=== PATIENT | female | born 1980 | race African-American/Black ===

== ENCOUNTER 2016-12-19 20:38 | Emergency (ER) | payer OTHER ==
--- NOTE | 2016-12-19 20:52 | PDOC ---
Rapid Medical Evaluation Time Seen by Provider: 12/19/16 20:48 Medical Evaluation: Allergies Allergy/AdvReac Type Severity Reaction Status Date / Time No Known Allergies Allergy Verified 05/31/16 10:50 12/19/16 20:50 36 yo F (right hand dominant)c/o right distal/medial forearm abscess since 4d ago. She initially noticed a pimple to her forearm x4d ago which prompted her to squeeze it. 3 days ago she noticed some redness with swelling without drainage.
[2016-12-19 20:54] VITALS: BP 146/77; PULSE 98; TEMP 97.7; BMI 24.2
--- NOTE | 2016-12-19 22:45 | PDOC ---
History of Present Illness - General History Source: Patient Exam Limitations: No Limitations - History of Present Illness Initial Comments: 12/19/16 23:36 The patient is a 36 year old female, with a significant past medical history of bipolar, anxiety and depression, who presents to the emergency department with right forearm abscess. She reports that the abscess was a pimple, which she attempted to squeeze it, resulting in a small amount of pus coming out. But the abscess has exacerbated. She reports minimal pain from the area. The patient denies chest pain, shortness of breath, headache and dizziness. Denies fever, chills, nausea, vomit, diarrhea and constipation. Allergies: None Past surgical history: None reported Social history: Cigarette use (5 daily). No alcohol or drug use reported PMD - Dr. Nhan Mcclelland <Dinesh Michaels - Last Filed: 12/19/16 23:35> <Stanislaw Akhtar - Last Filed: 12/19/16 23:48> - General Chief Complaint: Wound Infection Stated Complaint: CYST RIGHT ARM Time Seen by Provider: 12/19/16 20:48 Past History <Dinesh Michaels - Last Filed: 12/19/16 23:35> - Past Medical History Anemia: No Asthma: No Cancer: No Cardiac Disorders: No COPD: No Diabetes: No GI Disorders: No Disorders: No HTN: No Hypercholesterolemia: No Kidney Stones: No Psychiatric Problems: Yes (BIPOLAR, ANXIETY, DEPRESSION) Suicide Attempt (Hx): No Seizures: No Thyroid Disease: No - Reproductive History (#): 5 Para: 1 PID: No Therapeutic (s) & number: Yes (2) Spontaneous : 1 - Immunization History Td Vaccination: Yes Immunization Up to Date: Yes - Psycho/Social/Smoking Cessation Hx Anxiety: Yes Suicidal Ideation: No Smoking Status: Yes Smoking History: Current every day smoker Years of Tobacco Use: 15 Have you smoked in the past 12 months: No Number of Cigarettes Smoked Daily: 5 Cigars Per Day: 0 Information on smoking cessation initiated: Yes 'Breaking Loose' booklet given: 12/19/16 Hx Alcohol Use: No Drug/Substance Use Hx: No Substance Use Type: None Hx Substance Use Treatment: No <Stanislaw Akhtar - Last Filed: 12/19/16 23:48> - Past Medical History Allergies/Adverse Reactions: Allergies Allergy/AdvReac Type Severity Reaction Status Date / Time No Known Allergies Allergy Verified 12/19/16 20:50 Home Medications: Ambulatory Orders Oxycodone HCl/Acetaminophen [Percocet 5-325 mg Tablet] 1 tab PO Q6H #14 tablet MDD 3 12/19/16 Sulfamethoxazole/Trimethoprim [Bactrim Ds -] 1 tab PO BID #20 tablet 12/19/16 Review of Systems - Review of Systems Able to Perform ROS?: Yes Comments:: 12/19/16 23:36 CONSTITUTIONAL: No fever, no chills, no fatigue EYES: No visual changes ENT: No ear pain, no sore throat CARDIOVASCULAR: No chest pain, no palpitations RESPIRATORY: No cough, no SOB GI: No abdominal pain, no nausea, no vomiting, no constipation, no diarrhea GENITOURINARY: No dysuria, no frequency, no hematuria MUSKULOSKELETAL: No backpain, no joint pain, no myalgias SKIN: +Right forearm abscess. NEURO: No headache <Dinesh Michaels - Last Filed: 12/19/16 23:35> *Physical Exam - Vital Signs Last Vital Signs Temp Pulse Resp BP Pulse Ox 97.7 F 98 H 18 146/77 98 12/19/16 20:51 12/19/16 20:51 12/19/16 20:51 12/19/16 20:51 12/19/16 20:51 <Dinesh Michaels - Last Filed: 12/19/16 23:35> - Vital Signs Last Vital Signs Temp Pulse Resp BP Pulse Ox 97.7 F 98 H 18 146/77 98 12/19/16 20:51 12/19/16 20:51 12/19/16 20:51 12/19/16 20:51 12/19/16 20:51 - Physical Exam Comments: EXTR: Right forearm: + Approximately 5 cm x 4 cm area of erythema with induration and a centrally located 1.5 cm area of fluctuance beneath a hemorrhagic eschar. <Stanislaw Akhtar - Last Filed: 12/19/16 23:48> Procedures - Incision and Drainage I&D Site: Right: Arm (right forearm) Betadine cleansed: Yes Anesthesia: 1% Lidocaine w/ Epi Volume(ml): 2 Blade Size: 11 Attempts: 1 Plain Packing: Yes (2 inches) Complications: none Dressing: Yes Progress: 12/19/16 23:33 pt gwendolyn procedure well <Stanislaw Akhtar - Last Filed: 12/19/16 23:48> ED Treatment Course - Medications Given in the ED: ED Medications Discontinued Medications Generic Name Dose Route Start Last Admin Trade Name Randal PRN Reason Stop Dose Admin Trimethoprim/Sulfamethoxazole 1 each 12/19/16 22:53 12/19/16 23:07 Bactrim Ds - PO 12/19/16 22:54 1 each ONCE ONE Administration <Dinesh Michaels - Last Filed: 12/19/16 23:35> Medical Decision Making - Medical Decision Making 12/19/16 23:47 Patient is a well-appearing 36-year-old female who presents with signs and symptoms of an acute cutaneous abscess to the right forearm. Abscess was incised and drained with drainage of large amount of purulent material. Abscess cavity was packed and gauze dressing applied. Wound cultures been obtained. Patient received Bactrim in the ED and will be discharged with by mouth Bactrim with wound check in 48 hours. <Stanislaw Akhtar - Last Filed: 12/19/16 23:48> *DC/Admit/Observation/Transfer - Attestations Scribe Attestion: 12/19/16 23:36 Documentation prepared by Dinesh Michaels, acting as director biomedical engineering for Stanislaw Akhtar MD <Dinesh Michaels - Last Filed: 12/19/16 23:35> <Stanislaw Akhtar - Last Filed: 12/19/16 23:48> Diagnosis at time of Disposition: Cellulitis and abscess of upper arm and forearm - Discharge Dispostion Disposition: HOME Condition at time of disposition: Stable - Prescriptions Prescriptions: Sulfamethoxazole/Trimethoprim [Bactrim Ds -] 1 tab PO BID #20 tablet Oxycodone HCl/Acetaminophen [Percocet 5-325 mg Tablet] 1 tab PO Q6H #14 tablet MDD 3 - Referrals Referrals: Nhan Mcclelland MD [Primary Care Provider] - ED, fourty eight hours [Other] - Patient Instructions Printed Discharge Instructions: DI for Wound Infection, DI for Skin Abscess
[2016-12-19] MEDS ORDERED: SULFAMETHOXAZOLE/TRIMETHOPRIM 800MG/160MG D.S. TABLET PO ONE (22:53)
[2016-12-19] MEDS ORDERED: SULFAMETHOXAZOLE/TRIMETHOPRIM 800MG/160MG D.S. TABLET ONE (22:57)
[2016-12-19] MEDS ORDERED: OXYCODONE/APAP 5/325MG COMBO TABLET ONE (23:45)
[2016-12-19] MEDS ORDERED: OXYCODONE/APAP 5/325MG COMBO TABLET PO ONE (23:49)
== END 2016-12-19 23:52 | disposition home or self-care (01) ==
LOC: JERFT 20:38 → JER 20:38
PROC: 0J9G0ZZ Drainage of Right Lower Arm Subcutaneous Tissue and Fascia, Open Approach (ICD-10-PCS; principal; 2016-12-19)
DX: L02.413 Cutaneous abscess of right upper limb (principal); F31.9 Bipolar disorder, unspecified; F17.210 Nicotine dependence, cigarettes, uncomplicated
CPT/HCPCS: 87070; 87186; 87205; 99281-25

== ENCOUNTER 2018-02-22 14:50 | Emergency (ER) | payer OTHER ==
[2018-02-22 15:01] VITALS: BMI 30.2
[2018-02-22] MEDS ORDERED: ACETAMINOPHEN 500 MG TABLET (FP) PO ONE (15:52)
[2018-02-22] MEDS ORDERED: ACETAMINOPHEN 325 MG TABLET (FP) ONE (16:09)
[2018-02-22 16:22] LABS: URINE APPEARANCE CLEAR; URINE BILIRUBIN NEGATIVE (<2.0 mg/dL); URINE COLOR YELLOW; URINE GLUCOSE (UA) NEGATIVE (NEGATIVE); URINE KETONE 2+ (NEGATIVE); URINE LEUK ESTERASE NEGATIVE (NEGATIVE); URINE NITRITE NEGATIVE (NEGATIVE); URINE PROTEIN NEGATIVE (NEGATIVE)
--- NOTE | 2018-02-22 16:39 | PDOC ---
History of Present Illness - General Chief Complaint: Back Pain Stated Complaint: BACK PAIN (20+ WKS ) Time Seen by Provider: 02/22/18 15:22 History Source: Patient Exam Limitations: No Limitations - History of Present Illness Initial Comments: 02/22/18 16:00 37-year-old female currently 16-17 weeks presents to the ED with complaints of worsening low back pain since the onset of her . Patient states she had some lower back pain with her last but not to this extent. Patient states has not taken anything for the pain since she is afraid to take anything for this . Patient states had had an ultrasound a few weeks ago done by Dr. Reed which was normal. Patient denies dysuria, fever, nausea, vaginal bleeding or vaginal discharge. Patient does state intermittent lower abdominal pain which she describes a cramping for the past month. Occurred: reports: other (approximately 2 month) Severity: reports: mild Pain Location: reports: back Modifying Factors: improves with: None Associated Symptoms (Fall): denies symptoms Past History - Past Medical History Allergies/Adverse Reactions: Allergies Allergy/AdvReac Type Severity Reaction Status Date / Time No Known Allergies Allergy Verified 02/22/18 15:01 Home Medications: Ambulatory Orders NK [No Known Home Medication] 04/19/17 Anemia: No Asthma: No Cancer: No Cardiac Disorders: No COPD: No Diabetes: No GI Disorders: No Disorders: No HTN: No Hypercholesterolemia: No Kidney Stones: No Psychiatric Problems: Yes (BIPOLAR, ANXIETY, DEPRESSION) Seizures: No Thyroid Disease: No - Reproductive History (#): 5 Para: 1 PID: No Therapeutic (s) & number: Yes (2) Spontaneous : 1 - Immunization History Td Vaccination: Yes Immunization Up to Date: Yes - Suicide/Smoking/Psychosocial Hx Smoking Status: Yes Smoking History: Current every day smoker Years of Tobacco Use: 15 Have you smoked in the past 12 months: Yes Number of Cigarettes Smoked Daily: 5 Cigars Per Day: 0 Information on smoking cessation initiated: No 'Breaking Loose' booklet given: 12/19/16 Hx Alcohol Use: No Drug/Substance Use Hx: No Substance Use Type: None Hx Substance Use Treatment: No Patient Lives Alone: No Lives with/in: spouse/SO Trauma Specific PMHX - Complaint Specific PMHX Arthritis: No Review of Systems - Review of Systems Able to Perform ROS?: No Constitutional: No: Symptoms Reported HEENTM: No: Symptoms Reported Respiratory: No: Symptoms reported Cardiac (ROS): No: Symptoms Reported ABD/GI: Yes: Abdominal cramping : No: Symptoms Reported Musculoskeletal: Yes: Back Pain. No: Joint Pain, Muscle Pain, Muscle Weakness, Neck Pain Integumentary: No: Symptoms Reported Neurological: No: Symptoms reported *Physical Exam - Vital Signs Last Vital Signs Temp Pulse Resp BP Pulse Ox 98 F 93 H 18 117/69 99 02/22/18 14:57 02/22/18 14:57 02/22/18 14:57 02/22/18 14:57 02/22/18 14:57 - Physical Exam General Appearance: Yes: Nourished, Appropriately Dressed. No: Apparent Distress HEENT: negative: Pale Conjunctivae Neck: positive: Normal Thyroid Respiratory/Chest: positive: Lungs Clear, Normal Breath Sounds. negative: Respiratory Distress, Accessory Muscle Use Cardiovascular: positive: Regular Rhythm, Regular Rate. negative: Murmur Gastrointestinal/Abdominal: positive: Soft. negative: Tenderness Musculoskeletal: positive: Other (bilateral paraspinous tenderness at l3-s1). negative: Decreased Range of Motion, Vertebral Tenderness (no midline tenderness ) Integumentary: positive: Normal Color, Warm, Moist Neurologic: positive: Normal Mood/Affect, Motor Strength 5/5 (ambulatory) ED Treatment Course - ADDITIONAL ORDERS Additional order review: Laboratory Results 02/22/18 16:00 Urine Color Yellow Urine Appearance Clear Urine pH 6.0 Ur Specific [place] 1.020 Urine Protein Negative Urine Glucose (UA) Negative Urine Ketones 2+ H Urine Blood Negative Urine Nitrite Negative Urine Bilirubin Negative Urine Urobilinogen 2.0 H Ur Leukocyte Esterase Negative - RADIOLOGY Radiology Studies Ordered: Category Date Time Status LIMITED US [US] Stat Ultrasound 02/22/18 15:53 Ordered - Medications Given in the ED: ED Medications Discontinued Medications Generic Name Dose Route Start Last Admin Trade Name Freq PRN Reason Stop Dose Admin Acetaminophen 975 mg 02/22/18 15:52 02/22/18 16:10 Tylenol - PO 02/22/18 15:53 975 mg ONCE ONE Administration Medical Decision Making - Medical Decision Making 02/22/18 16:46 Pt with worsening low back pain over the past month. Patient is currently 16-17 weeks . Patient had no midline tenderness CVA tenderness or abdominal tenderness. Patient ordered for urine and urine culture, Tylenol and ultrasound. 02/22/18 17:51 Laboratory Tests 02/22/18 16:00 Urine Ketones 2+ H Urine Nitrite Negative Urine Urobilinogen 2.0 H Ur Leukocyte Esterase Negative Ultrasound shows a single live intrauterine gestation measuring 15 weeks 3 days with heart rate of 1 54 bpm. Patient states feeling better after receiving Tylenol. Patient will be discharged home with recommendations to take Tylenol for back discomfort and follow-up with Dr. Reed 02/22/18 18:02 *DC/Admit/Observation/Transfer Diagnosis at time of Disposition: Back pain affecting - Discharge Dispostion Disposition: HOME Condition at time of disposition: Improved - Referrals Referrals: Cali Reed MD [Staff Physician] - - Patient Instructions Printed Discharge Instructions: DI for Low Back Pain Additional Instructions: Please take Tylenol for discomfort and apply warm moist heating pad to the affected area to alleviate discomfort. Please follow up with Dr. Reed as scheduled and return to the ED if you develop lower abdominal pain, vaginal bleeding, vaginal discharge, or inability to tolerate by mouth. - Post Discharge Activity
[2018-02-22 18:24] VITALS: BP 115/79; PULSE 81; TEMP 98.2
== END 2018-02-22 18:27 | disposition home or self-care (01) ==
LOC: JER 14:50
DX: O99.89 Other specified diseases and conditions complicating pregnancy, childbirth and the puerperium (principal); M54.5 Low back pain; Z3A.15 15 weeks gestation of pregnancy
CPT/HCPCS: 76815-TC; 81003; 99283-25

== ENCOUNTER 2018-03-13 09:10 | Observation (INO) | payer OTHER ==
--- NOTE | 2018-03-13 09:43 | PDOC ---
History of Present Illness - General Chief Complaint: Pain, Acute Stated Complaint: 27 WKS/ABD PAIN Time Seen by Provider: 03/13/18 09:25 History Source: Patient Exam Limitations: No Limitations - History of Present Illness Initial Comments: 03/13/18 09:38 5 para 2, 19 week female with LMP 10/24/2017 , came to ER with C/O pain to back., right side and abdomen. states has had multiple issues and pains with this , has been to ER number of times for same. He has never had any significant positive results with these ER visits. Was seen by Dr. Reed, Her BOX REPAIRER Doctor , Yesterday Who Did Not Prescribe Any Medications for This Pain. She states they performed a doppler, to check for heart tone which was normal. tThe pain has worsened the past 3 days. Thinks may be related to the size of fetus. Patient denies fever, nausea vomiting, denies any pain or burning with urine, states baby mildly constipated but has gone "small amounts" every day. Denies bleeding or vaginal drainage. 03/13/18 09:43 03/13/18 10:43 Timing/Duration: unsure Severity: moderate Associated Symptoms: reports: denies symptoms, malaise. denies: chest pain, cough, diaphoresis, fever/chills, headaches, loss of appetite, nausea/vomiting Past History - Travel Traveled outside of the country in the last 30 days: No Close contact w/someone who was outside of country & ill: No - Past Medical History Allergies/Adverse Reactions: Allergies Allergy/AdvReac Type Severity Reaction Status Date / Time No Known Allergies Allergy Verified 02/22/18 15:01 Home Medications: Ambulatory Orders NK [No Known Home Medication] 04/19/17 Anemia: No Asthma: No Cancer: No Cardiac Disorders: No COPD: No Diabetes: No GI Disorders: No Disorders: No HTN: No Hypercholesterolemia: No Kidney Stones: No Psychiatric Problems: Yes (BIPOLAR, ANXIETY, DEPRESSION) Seizures: No Thyroid Disease: No - Reproductive History (#): 5 Para: 1 PID: No Therapeutic (s) & number: Yes (2) Spontaneous : 1 - Immunization History Td Vaccination: Yes Immunization Up to Date: Yes - Suicide/Smoking/Psychosocial Hx Smoking Status: Yes Smoking History: Current every day smoker Years of Tobacco Use: 15 Have you smoked in the past 12 months: Yes Number of Cigarettes Smoked Daily: 5 Cigars Per Day: 0 Information on smoking cessation initiated: No 'Breaking Loose' booklet given: 12/19/16 Hx Alcohol Use: No Drug/Substance Use Hx: No Substance Use Type: None Hx Substance Use Treatment: No Review of Systems - Review of Systems Able to Perform ROS?: Yes Is the patient limited Romansh proficient: Yes Constitutional: Yes: Symptoms Reported, See HPI, Malaise. No: Chills, Fever HEENTM: Yes: See HPI. No: Symptoms Reported Respiratory: Yes: See HPI. No: Symptoms reported, Cough ABD/GI: Yes: Symptoms Reported, See HPI, Abdominal cramping (vs MS pain). No: Abdominal Distended, Nausea, Rectal Bleeding, Vomiting, Tarry Stools : Yes: See HPI. No: Symptoms Reported, Burning, Dysuria, Discharge Integumentary: Yes: See HPI. No: Symptoms Reported Neurological: Yes: See HPI. No: Symptoms reported, Headache, Numbness All Other Systems: Reviewed and Negative *Physical Exam - Vital Signs Last Vital Signs Temp Pulse Resp BP Pulse Ox 98.7 F 82 20 113/73 99 03/13/18 09:20 03/13/18 09:20 03/13/18 09:20 03/13/18 09:20 03/13/18 09:20 - Physical Exam General Appearance: Yes: Nourished, Appropriately Dressed, Apparent Distress, Mild Distress HEENT: positive: OBINNA, Normal ENT Inspection, Normal Voice, TMs Normal, Pharynx Normal Neck: positive: Supple. negative: Tender, Lymphadenopathy (R), Lymphadenopathy (L) Respiratory/Chest: positive: Lungs Clear, Normal Breath Sounds Cardiovascular: positive: Regular Rate Gastrointestinal/Abdominal: positive: Normal Bowel Sounds, Soft (19 week preg abd. No tendernss reproduced in soft tissue ). negative: Guarding, Rebound, Hepatomegaly, Spleenomegaly Musculoskeletal: positive: Normal Inspection. negative: CVA Tenderness Extremity: positive: Normal Capillary Refill, Normal Inspection, Normal Range of Motion Integumentary: positive: Normal Color, Dry, Warm, Pale Neurologic: positive: school photographs detailer II-XII NML intact, Fully Oriented, Alert, Normal Mood/ Affect, Normal Response, Motor Strength 02/22 ED Treatment Course - LABORATORY CBC & Chemistry Diagram: 03/13/18 09:55 03/13/18 09:55 Medical Decision Making - Medical Decision Making 03/13/18 09:52 Back and side pain, probable musculoskeletal issues. Will obtain basic labs and send urinalysis as appears mildly cloudy. And obtain ultrasound to rule out any intrauterine uterine issue or issue. Family in room with patient, patient refuses Tylenol for pain relief 03/13/18 09:53 03/13/18 12:17 Discussed case with LESTER Rodgers from Dr. Reed office who stated patient had relatively uncomplicated thus far. Reviewed labs and she recommended antibiotic treatment with Macrobid for possible UTI and culture pending, and notified will obtain ultrasound to rule out kidney stones as patient has white count of 18,000, and blood in urine without any obvious signs of UTI. Patient understands plan and continues to refuse need for Tylenol 03/13/18 15:26 return from ultrasound which shows right mild hydronephrosis. No stones were identified however due to patient's back pain, blood in urinalysis +2. wiht RBC..and high WBC 03/13/18 15:29 03/13/18 17:07 Patient will be admitted to [facility] observation. Dr. Merritt has been consult ; will note that monitoring is not necessary however will accept patient to L&D floor for beds placement for observation. Dr. Shawn Martínez has been notified for urology consult and will see patient . 03/13/18 18:55 Patient medicated with 2 tablets of Tylenol for pain, IV, flushed and flowing well, patient was taken to third floor for bed placement and admission, Family at bedside. 03/13/18 18:56 *DC/Admit/Observation/Transfer Diagnosis at time of Disposition: Second trimester Hydronephrosis Qualifiers: Hydronephrosis type: unspecified Qualified Code(s): N13.30 - Unspecified hydronephrosis Leukocytosis Qualifiers: Leukocytosis type: unspecified Qualified Code(s): D72.829 - Elevated white blood cell count, unspecified - Discharge Dispostion Condition at time of disposition: Stable Decision to Admit order: Yes - Referrals - Patient Instructions - Post Discharge Activity
[2018-03-13 10:10] LABS: URINE APPEARANCE CLEAR; URINE BILIRUBIN NEGATIVE (<2.0 mg/dL); URINE COLOR LTYELLOW; URINE GLUCOSE (UA) NEGATIVE (NEGATIVE); URINE KETONE NEGATIVE (NEGATIVE); URINE LEUK ESTERASE NEGATIVE (NEGATIVE); URINE NITRITE NEGATIVE (NEGATIVE); URINE PROTEIN NEGATIVE (NEGATIVE); URINE UROBILINOGEN NEGATIVE mg/dL (0.2-1.0)
[2018-03-13 10:14] LABS: BASO % 0.3 % (0-2.0); EOS % 0.3 % (0-4.5); HEMATOCRIT 33.3 % (32.4-45.2); HEMOGLOBIN 11.5 GM/dL (10.7-15.3); LYMPH % 8.6 % (8-40); MCH 29.8 pg (25.7-33.7); MCHC 34.4 g/dl (32.0-36.0); MEAN CELL VOLUME 86.4 fl (80-96); MONO % 7.5 % (3.8-10.2); NEUT % 83.3 % (42.8-82.8); PLATELET COUNT 232 K/MM3 (134-434); RBC 3.85 M/mm3 (3.60-5.2); RDW 12.7 % (11.6-15.6); WHITE BLOOD COUNT 17.9 K/mm3 (4.0-10.0)
[2018-03-13 10:22] LABS: EPI CELLS RARE /HPF (FEW); URINE MUCUS RARE
[2018-03-13 10:32] LABS: ANION GAP 9 (8-16); BLOOD UREA NITROGEN 10 mg/dL (7-18); CALCIUM 8.3 mg/dL (8.5-10.1); CHLORIDE 106 mmol/L (98-107); CO2 23 mmol/L (21-32); CREATININE 0.8 mg/dL (0.55-1.02); GLUCOSE,RANDOM 91 mg/dL (74-106); POTASSIUM 3.9 mmol/L (3.5-5.1); SODIUM 138 mmol/L (136-145)
[2018-03-13] MEDS ORDERED: ONDANSETRON 4 MG/2 ML VIAL ONE (13:16)
[2018-03-13] MEDS ORDERED: ONDANSETRON 4 MG/2 ML VIAL IVPUSH ONE (13:16)
[2018-03-13] MEDS ORDERED: SODIUM CHLORIDE 1,000 ML IV SCH (13:30)
[2018-03-13] MEDS ORDERED: CEFTRIAXONE 1,000 MG in DEXTROSE 5%-WATER - 50 ML IV ONE (15:26)
[2018-03-13] MEDS ORDERED: CEFTRIAXONE 1 GM/50 ML BAG ONE (16:28)
--- NOTE | 2018-03-13 16:40 | PDOC ---
*Physical Exam - Vital Signs Last Vital Signs Temp Pulse Resp BP Pulse Ox 98.1 F 73 16 95/51 99 03/13/18 14:00 03/13/18 14:00 03/13/18 14:00 03/13/18 14:00 03/13/18 14:00 ED Treatment Course - LABORATORY CBC & Chemistry Diagram: 03/13/18 09:55 03/13/18 09:55 - ADDITIONAL ORDERS Additional order review: Laboratory Results 03/13/18 03/13/18 03/13/18 09:55 09:55 09:55 Sodium Cancelled 138 Potassium Cancelled 3.9 Chloride Cancelled 106 Carbon Dioxide Cancelled 23 Anion Gap Cancelled 9 BUN Cancelled 10 Creatinine Cancelled 0.8 Random Glucose Cancelled 91 Calcium Cancelled 8.3 L Beta HCG, Quant 96183.9 Urine Color Ltyellow Urine Appearance Clear Urine pH 6.0 Ur Specific [place] 1.020 Urine Protein Negative Urine Glucose (UA) Negative Urine Ketones Negative Urine Blood 2+ H Urine Nitrite Negative Urine Bilirubin Negative Urine Urobilinogen Negative Ur Leukocyte Esterase Negative Urine WBC (Auto) 3 Urine RBC (Auto) 119 Ur Epithelial Cells Rare Urine Mucus Rare 03/13/18 09:55 RBC 3.85 MCV 86.4 MCHC 34.4 RDW 12.7 MPV 9.0 Neutrophils % 83.3 H D Lymphocytes % 8.6 D Monocytes % 7.5 Eosinophils % 0.3 Basophils % 0.3 - Medications Given in the ED: ED Medications Discontinued Medications Generic Name Dose Route Start Last Admin Trade Name Freq PRN Reason Stop Dose Admin Ondansetron HCl 4 mg 03/13/18 13:16 03/13/18 13:21 Zofran Injection IVPUSH 03/13/18 13:17 4 mg ONCE ONE Administration Medical Decision Making - Medical Decision Making 03/13/18 16:37 37y/o F 19.5 wks gestation p/w acute back/flank pain and dysuria. agree with exam as noted. workup notable for wbc 18 with neutrophil shift, ua with 119 rbc, sono with R sided hydronephrosis. Given sxs and findings, most concerning for obstructing, infected stone. urine cx sent abx started discussed with [facility], does not need monitoring at this time, they will consult. will admit to hospitalist for pain control, iv abx, and further evaluation with for evaluation of need for emergent decompression or further evaluation in . *DC/Admit/Observation/Transfer Diagnosis at time of Disposition: Second trimester Hydronephrosis Qualifiers: Hydronephrosis type: unspecified Qualified Code(s): N13.30 - Unspecified hydronephrosis Leukocytosis Qualifiers: Leukocytosis type: unspecified Qualified Code(s): D72.829 - Elevated white blood cell count, unspecified - Referrals - Patient Instructions - Post Discharge Activity
[2018-03-13] MEDS: SODIUM CHLORIDE 1,000 ML IV SCH (16:59)
--- NOTE | 2018-03-13 17:13 | PN ---
Teaching Attending Note Name of Resident: Marci Lazcano ATTENDING PHYSICIAN STATEMENT I saw and evaluated the patient. I reviewed the resident's note and discussed the case with the resident. I agree with the resident's findings and plan as documented with exceptions below. SUBJECTIVE: 37 yf 19 weeks 2 days , no other PMHx comes with 3 days of left back pain radiating down to her groin, progressively worse, intermittent, with episode of diaphoresis. Was seen by her Ob yesterday, had FHR check and was found to be well, felt her pain was from fetus positioning in and sent home. Came to ED today with persistent symptoms, reports feeling of incomplete evaluation, but no urinary frequency, urgency, dysuria, prior h/o UTI or stones. No similar history during prior pregnancies. Currently feels better. OBJECTIVE: Vital Signs Period Temp Pulse Resp BP Sys/[place] Pulse Ox Last 24 Hr 98.1 F-98.7 F 73-82 16-20 95-121/51-73 99-100 Intake & Output 03/10/18 03/11/18 03/12/18 03/13/18 23:59 23:59 23:59 23:59 Weight 150 lb GENERAL: Awake, alert, and fully oriented, in no acute distress. HEAD: Normal with no signs of trauma. EYES: Pupils equal, round and reactive to light, extraocular movements intact, sclera anicteric, conjunctiva clear. No lid lag. EARS, NOSE, THROAT: Ears normal, nares patent, oropharynx clear without exudates. Moist mucous membranes. NECK: soft, supple, no JVD LUNGS: Breath sounds equal, clear to auscultation bilaterally. No wheezes, and no crackles. No accessory muscle use. HEART: S1S2 regular ABDOMEN: Soft, distended, tenderness in LMQ/upper LLQ, positive Left CVA tenderness, no suprapubic tenderness, discomfort in RMQ report more from fetus movement to the left MUSCULOSKELETAL: Normal range of motion at all joints. No bony deformities or tenderness. No CVA tenderness. UPPER EXTREMITIES: 2+ pulses, warm, well-perfused. No cyanosis. No clubbing. No peripheral edema. LOWER EXTREMITIES: 2+ pulses, warm, well-perfused. No calf tenderness. No peripheral edema. NEUROLOGICAL: Cranial nerves II-XII intact. Normal speech. PSYCHIATRIC: Cooperative. Good eye contact. Appropriate mood and affect. SKIN: Warm, dry, normal turgor, no rashes or lesions noted, normal capillary refill. Home Medication List Medication Instructions Recorded Confirmed Type NK [No Known Home Medication] 04/19/17 03/13/18 History Active Medications Generic Name Dose Route Start Last Admin Trade Name Randal PRN Reason Stop Dose Admin Sodium Chloride 1,000 mls @ 150 mls/hr 03/13/18 13:30 03/13/18 13:21 Normal Saline - IV 150 mls/hr ASDIR MARGO Administration Sodium Chloride 1,000 mls @ 150 mls/hr 03/13/18 15:30 03/13/18 16:59 Normal Saline - IV 150 mls/hr ASDIR MARGO Administration Laboratory Results - last 24 hr 03/13/18 03/13/18 03/13/18 09:55 09:55 09:55 WBC 17.9 H D RBC 3.85 Hgb 11.5 D Hct 33.3 MCV 86.4 MCH 29.8 MCHC 34.4 RDW 12.7 Plt Count 232 MPV 9.0 Neutrophils % 83.3 H D Lymphocytes % 8.6 D Monocytes % 7.5 Eosinophils % 0.3 Basophils % 0.3 Nucleated RBC % 0 Sodium 138 Potassium 3.9 Chloride 106 Carbon Dioxide 23 Anion Gap 9 BUN 10 Creatinine 0.8 Random Glucose 91 Calcium 8.3 L Beta HCG, Quant 09300.9 Urine Color Ltyellow Urine Appearance Clear Urine pH 6.0 Ur Specific [place] 1.020 Urine Protein Negative Urine Glucose (UA) Negative Urine Ketones Negative Urine Blood 2+ H Urine Nitrite Negative Urine Bilirubin Negative Urine Urobilinogen Negative Ur Leukocyte Esterase Negative Urine WBC (Auto) 3 Urine RBC (Auto) 119 Ur Epithelial Cells Rare Urine Mucus Rare 03/13/18 09:55 WBC RBC Hgb Hct MCV MCH MCHC RDW Plt Count MPV Neutrophils % Lymphocytes % Monocytes % Eosinophils % Basophils % Nucleated RBC % Sodium Cancelled Potassium Cancelled Chloride Cancelled Carbon Dioxide Cancelled Anion Gap Cancelled BUN Cancelled Creatinine Cancelled Random Glucose Cancelled Calcium Cancelled Beta HCG, Quant Urine Color Urine Appearance Urine pH Ur Specific [place] Urine Protein Urine Glucose (UA) Urine Ketones Urine Blood Urine Nitrite Urine Bilirubin Urine Urobilinogen Ur Leukocyte Esterase Urine WBC (Auto) Urine RBC (Auto) Ur Epithelial Cells Urine Mucus Renal US noted - mild right hydronephrosis Obstetrics US results noted ASSESSMENT AND PLAN: 37 yof 19 weeks 2 days with back pain, found with hematuria, leucocytosis and mild left hydronephrosis. -Mild left hydronephrosis -hematuria, ?, vs nephrolithiasis (less likely) vs infectious process -leucocytosis, ?from vs stress response, low suspicion for ongoing concerning UTI vs pyelonephritis -19 weeks 2 days Plan: s/p Ceftriaxone in ED. Cefazolin. ID consult. Follow up urine cultures. No evidence of stone on renal US though not optimal imaging. Mild hydronephrosis common in as discussed with Dr. Norman. aggressive IV hydration. Monitor WBC and renal function. Discussed with Dr. Norman, leucocytosis and mild left hydronephrosis could be explained from but positive hematuria, back symptoms and urinary symptoms. Bladder scan x 1, monitor closely. Pain control tylenol prn. Discussed with patient, avoid narcotics for now, patient agreable. Admit to obs to Field Service Engineer floor for FHR monitoring as indicated. dispo home in 24-48 hours if w/u unrevealing and patient improved. Plan discussed with patient in detail, all questions answered.
[2018-03-13] MEDS ORDERED: ACETAMINOPHEN 325 MG TABLET (FP) PO ONE (18:23)
[2018-03-13] MEDS ORDERED: ACETAMINOPHEN 325 MG TABLET (FP) ONE (18:36)
--- NOTE | 2018-03-13 18:37 | HP ---
CHIEF COMPLAINT: back pain PCP:none HISTORY OF PRESENT ILLNESS: The patient is a 37 year old female G 5 P3, 19 week , no PMH, that presented to the hospital complaining of back pain on left side radiating to left side of her abdomen that started 3 days ago. She went to her OBGYN Dr Reed, had Doppler and was told that her fetus is healthy and she should not be concerned. No medications were prescribed to her. Today her pain got worse, it is constant, sharp since 3 AM. She states that she always has abdominal pain during this . She states that every time she goes to the bathroom to urinate, she has feeling of not emptying her bladder completely. She denies dysuria, increased frequency, urgency. Patient denies fever, nausea vomiting, denies diarrhea, constipation, loss of appetite. Denies bleeding or vaginal drainage. ER course was notable for: (1)US (2)WBC (3) PAST MEDICAL HISTORY: no PMH PAST SURGICAL HISTORY: 2 c sections Social History: Smoking:currwent smoker, 5-6 cigarettes a day Alcohol:denies Drugs:denies Family History: She was adopted. Children healthy. Allergies No Known Allergies Allergy (Verified 02/22/18 15:01) HOME MEDICATIONS: Home Medications Medication Instructions Recorded NK [No Known Home Medication] 04/19/17 REVIEW OF SYSTEMS CONSTITUTIONAL: Absent: fever, chills, diaphoresis, generalized weakness, malaise, loss of appetite, weight change HEENT: Absent: rhinorrhea, nasal congestion, throat pain, throat swelling, difficulty swallowing, CARDIOVASCULAR: Absent: chest pain, syncope, palpitations, irregular heart rate, lightheadedness , peripheral edema RESPIRATORY: Absent: cough, shortness of breath, dyspnea with exertion, orthopnea, wheezing, GASTROINTESTINAL: abdominal pain, Absent: abdominal distension, nausea, vomiting, diarrhea, constipation, GENITOURINARY: flank pain, Absent: dysuria, frequency, urgency, hesitancy, hematuria, genital pain SKIN: Absent: rash, itching, pallor ENDOCRINE: Absent: unexplained weight gain, unexplained weight loss, NEUROLOGIC: Absent: headache, focal weakness or paresthesias, dizziness PSYCHIATRIC: Absent: anxiety, depression, PHYSICAL EXAMINATION Vital Signs - 24 hr 03/13/18 03/13/18 03/13/18 09:20 14:00 16:59 Temperature 98.7 F 98.1 F Pulse Rate 82 Pulse Rate [ 73 75 Right] Respiratory 20 16 16 Rate Blood Pressure 113/73 Blood Pressure 95/51 121/51 [Right Arm] O2 Sat by Pulse 99 99 100 Oximetry (%) GENERAL: Awake, alert, and fully oriented, in no acute distress. HEAD: Normal with no signs of trauma. EYES: Pupils equal, round and reactive to light, extraocular movements intact, sclera anicteric, conjunctiva clear. Swelling on upper eyelids. EARS, NOSE, THROAT: oropharynx clear without exudates. Moist mucous membranes. NECK: Normal range of motion, supple without lymphadenopathy, JVD, or masses. LUNGS: Breath sounds equal, clear to auscultation bilaterally. No wheezes, and no crackles. HEART: Regular rate and rhythm, normal S1 and S2 without murmur, rub or gallop. ABDOMEN: gravid, mild tenderness on left side, normoactive bowel sounds, no guarding, no rebound, no masses. MUSCULOSKELETAL: Normal range of motion at all joints. No bony deformities or tenderness. +CVA on left side. UPPER EXTREMITIES: No peripheral edema. LOWER EXTREMITIES: 2+ pulses, no peripheral edema. NEUROLOGICAL: no facial asymmetry, gait not observed, motor 5/5. PSYCHIATRIC: Cooperative. Good eye contact. Appropriate mood and affect. SKIN: Warm, dry, normal turgor, no rashes. Laboratory Results - last 24 hr 03/13/18 03/13/18 03/13/18 09:55 09:55 09:55 WBC 17.9 H D RBC 3.85 Hgb 11.5 D Hct 33.3 MCV 86.4 MCH 29.8 MCHC 34.4 RDW 12.7 Plt Count 232 MPV 9.0 Neutrophils % 83.3 H D Lymphocytes % 8.6 D Monocytes % 7.5 Eosinophils % 0.3 Basophils % 0.3 Nucleated RBC % 0 Sodium 138 Potassium 3.9 Chloride 106 Carbon Dioxide 23 Anion Gap 9 BUN 10 Creatinine 0.8 Random Glucose 91 Calcium 8.3 L Beta HCG, Quant 83014.9 Urine Color Ltyellow Urine Appearance Clear Urine pH 6.0 Ur Specific [place] 1.020 Urine Protein Negative Urine Glucose (UA) Negative Urine Ketones Negative Urine Blood 2+ H Urine Nitrite Negative Urine Bilirubin Negative Urine Urobilinogen Negative Ur Leukocyte Esterase Negative Urine WBC (Auto) 3 Urine RBC (Auto) 119 Ur Epithelial Cells Rare Urine Mucus Rare 03/13/18 09:55 WBC RBC Hgb Hct MCV MCH MCHC RDW Plt Count MPV Neutrophils % Lymphocytes % Monocytes % Eosinophils % Basophils % Nucleated RBC % Sodium Cancelled Potassium Cancelled Chloride Cancelled Carbon Dioxide Cancelled Anion Gap Cancelled BUN Cancelled Creatinine Cancelled Random Glucose Cancelled Calcium Cancelled Beta HCG, Quant Urine Color Urine Appearance Urine pH Ur Specific [place] Urine Protein Urine Glucose (UA) Urine Ketones Urine Blood Urine Nitrite Urine Bilirubin Urine Urobilinogen Ur Leukocyte Esterase Urine WBC (Auto) Urine RBC (Auto) Ur Epithelial Cells Urine Mucus ASSESSMENT/PLAN: The patient is a 37 year old female G 5 P3, 19 week , no PMH, that presented to the hospital complaining of back pain on left side radiating to left side of her abdomen that started 3 days ago. She is admitted for hydronephrosis on left side. Left hydronephrosis: -The patient presented with strong pain for 3 days , elevated WBC to 17.9, 2+ blood in urine, 19 weeks . She was found to have mild hydronephrosis on left side. No NANCY. low suspicion for pyelonephritis. -Ceftriaxone was given in ED, will continue Cefazolin, -consulted ID, will f/u recommendations -will f/u OBGYN recommendations, she will stay on 3rd floor -NS at 150 cc/hr -Yulenol Po 650 mg q6h -bladder scan ordered -urine culture pending : -will f/u OBGYN recommendations -cont hydration and monitoring DVT PPX: ambulating -scds bilaterally F/E/N: NS/no changes/Regular Disposition: med surg obs Visit type - Emergency Visit Emergency Visit: Yes ED Registration Date: 03/13/18 Care time: The patient presented to the Emergency Department on the above date and was hospitalized for further evaluation of their emergent condition. - New Patient This patient is new to me today: Yes Date on this admission: 03/13/18 - Critical Care Critical Care patient: No Hospitalist Screening - Colonoscopy Questionnaire Colonoscopy Questionnaire: Colonoscopy Questionnaire - Patient: 50 - 75 years old and never had a screening colonoscopy: No History of colon or rectal polyps, or CA: No History of IBD, Crohn's disease or UC: No History of abdominal radiation therapy as a child: No - Relative: 1 with colon or rectal CA, or polyps at age 60 or younger: No Colon or rectal CA diagnosed at age 45 or younger: No Multiple relatives with colon or rectal CA: No - Outcome: Screening Result: Negative Screen
--- NOTE | 2018-03-13 19:25 | CON.GU ---
Consult - History of Present Illness History of Present Illness: 37 yo female, 19wks , admitted with several days of left flank pain, feeling of incomplete emptying, sweats. Renal sono with mild left hydro. No prior h/o nephrolithiasis - Past Medical History ...LMP: 10/24/17 ...: Yes - Alcohol/Substance Use Hx Alcohol Use: No - Smoking History Smoking history: Current every day smoker Have you smoked in the past 12 months: Yes Aproximately how many cigarettes per day: 5 Home Medications - Allergies Allergies/Adverse Reactions: Allergies Allergy/AdvReac Type Severity Reaction Status Date / Time No Known Allergies Allergy Verified 02/22/18 15:01 - Home Medications Home Medications: Ambulatory Orders NK [No Known Home Medication] 04/19/17 Physical Exam- Vital Signs: Vital Signs Temperature 98.1 F 03/13/18 14:00 Pulse Rate 75 03/13/18 16:59 Respiratory Rate 16 03/13/18 16:59 Blood Pressure 121/51 03/13/18 16:59 O2 Sat by Pulse Oximetry (%) 100 03/13/18 16:59 Renal/: Yes: Other (no hematuria) Labs: CBC, BMP 03/13/18 09:55 03/13/18 09:55 Imaging - Results Ultrasound: Report Reviewed Problem List - Problems (1) Hydronephrosis Assessment/Plan: uti vs possible small left ureteral stone. Agree with IVF hydration, antibiotics and analgesics Code(s): N13.30 - UNSPECIFIED HYDRONEPHROSIS Qualifiers: Hydronephrosis type: unspecified Qualified Code(s): N13.30 - Unspecified hydronephrosis
[2018-03-13] MEDS: ACETAMINOPHEN 325 MG TABLET (FP) PO PRN (21:36)
[2018-03-13 21:44] VITALS: BMI 30.2
[2018-03-14] MEDS: SODIUM CHLORIDE 1,000 ML IV SCH ×3 (00:29→14:00)
--- NOTE | 2018-03-14 01:16 | CONS ---
DATE OF CONSULTATION: 03/13/2018 REASON FOR CONSULTATION: at 19 weeks, left flank pain. HISTORY OF PRESENT ILLNESS: Patient is a 37-year-old female, 5, para 3 at 19 weeks , who has been followed in her with Dr. Reed. She has been seen in [facility] yesterday with the same complaint of left flank pain, radiating to the groin area. No dysuria, but it feels like a stabbing pain, she describes. She does not have any fever, chills, or gross hematuria. No past medical history of kidney stones. PAST MEDICAL/SURGICAL HISTORY: Consistent with her two previous sections. SOCIAL HISTORY: She smokes 5 or 6 cigarettes per day. No alcohol or drug use. PHYSICAL EXAMINATION: Vital Signs: Her temperature is 98.7, pulse is 82, blood pressure 113/73. General: Patient is alert, no acute distress. Genitourinary: Uterus is approximately 20 weeks' size, nontender. Mild left flank pain and tenderness. Vaginal examination was deferred. LABORATORY: Her white count was 17.9 with 83 neutrophils. Her urinalysis shows 2+ blood, but negative for leukocyte esterase and 3 WBCs. Sonogram has showed left hydronephrosis. She has no contraction. No vaginal bleeding. IMPRESSION: 1. 19 weeks. 2. Mild hydronephrosis, could be physiologic or secondary to , rule out obstructive uropathy, rule out renal stone, and rule out pyelonephritis. Patient presently on intravenous antibiotics and analgesia. PLAN: Advise Urology consultation, IV hydration and analgesia. Gael [id number]
[2018-03-14] MEDS: ACETAMINOPHEN 325 MG TABLET (FP) PO PRN ×2 (05:55→11:47)
--- NOTE | 2018-03-14 06:19 | PN ---
Progress Note (short form) - Note Progress Note: OB HD 1, has mild LT upper abdominal pain ,no dysuria, no gross hematuria, voids ok, no vaginal bleeding, no contraction CBC, BMP 03/13/18 09:55 03/13/18 09:55 Last Vital Signs Temp Pulse Resp BP Pulse Ox 98.4 F 72 18 110/60 100 03/14/18 06:00 03/14/18 06:00 03/14/18 06:00 03/14/18 06:00 03/13/18 16:59 abdomen soft, no distension, no cva uterus non tender , FH present impression mild LT hydronephrosis , possible physiological in nature secondary to , r/o obstructive uropathy. dobut pyelo, patient afebrile , awating U/A, C/S plan .cont, hydration, iv antibiotics pending urine culture uro evaluation repeat cbc,
--- NOTE | 2018-03-14 07:11 | PN ---
Physical Exam: SUBJECTIVE: Patient seen and examined. Pt has intermittent abdominal pain. Had just had a shower this am when I saw and was pain free. OBJECTIVE: Vital Signs Period Temp Pulse Resp BP Sys/[place] Pulse Ox Last 24 Hr 97.6 F-98.7 F 60-82 16-20 95-121/51-80 99-100 Vital Signs Temp 98.4 F 03/14/18 06:00 Pulse 72 03/14/18 06:00 Resp 18 03/14/18 06:00 BP 110/60 03/14/18 06:00 Pulse Ox 100 03/13/18 16:59 Intake & Output 03/13/18 03/13/18 03/14/18 11:59 23:59 11:59 Intake Total 1808 Balance 1808 Weight 68.039 kg 68.039 kg Intake: IV 1808 Normal Saline - 1,000 ml 1808 @ 150 mls/hr IV ASDIR [facility] Rx#:[id number] Other: Voiding Method Toilet Height 1.52 m 1.5 m Body Mass Index (BMI) 29.2 30.2 Weight Measurement Method Stated by Patient Weight Measurement Method Est/Stated by Patient Ambulatory Orders NK [No Known Home Medication] 04/19/17 GENERAL: The patient is awake, alert, and fully oriented, in no acute distress. ENT: moist mucous membranes. LUNGS: Breath sounds equal, clear to auscultation bilaterally HEART: Regular rate and rhythm, S1, S2 ABDOMEN: Gravid uterus, distended above the umbilicus about 18 weeks gestation size. L CVA tenderness. EXTREMITIES: 2+ pulses, warm, well-perfused, no edema. NEUROLOGICAL: Cranial nerves II through XII grossly intact. Normal speech, normal gait Laboratory Results - last 24 hr 03/13/18 03/13/18 03/13/18 09:55 09:55 09:55 WBC 17.9 H D RBC 3.85 Hgb 11.5 D Hct 33.3 MCV 86.4 MCH 29.8 MCHC 34.4 RDW 12.7 Plt Count 232 MPV 9.0 Neutrophils % 83.3 H D Lymphocytes % 8.6 D Monocytes % 7.5 Eosinophils % 0.3 Basophils % 0.3 Nucleated RBC % 0 Sodium 138 Potassium 3.9 Chloride 106 Carbon Dioxide 23 Anion Gap 9 BUN 10 Creatinine 0.8 Random Glucose 91 Calcium 8.3 L Beta HCG, Quant 59457.9 Urine Color Ltyellow Urine Appearance Clear Urine pH 6.0 Ur Specific [place] 1.020 Urine Protein Negative Urine Glucose (UA) Negative Urine Ketones Negative Urine Blood 2+ H Urine Nitrite Negative Urine Bilirubin Negative Urine Urobilinogen Negative Ur Leukocyte Esterase Negative Urine WBC (Auto) 3 Urine RBC (Auto) 119 Ur Epithelial Cells Rare Urine Mucus Rare 03/13/18 09:55 WBC RBC Hgb Hct MCV MCH MCHC RDW Plt Count MPV Neutrophils % Lymphocytes % Monocytes % Eosinophils % Basophils % Nucleated RBC % Sodium Cancelled Potassium Cancelled Chloride Cancelled Carbon Dioxide Cancelled Anion Gap Cancelled BUN Cancelled Creatinine Cancelled Random Glucose Cancelled Calcium Cancelled Beta HCG, Quant Urine Color Urine Appearance Urine pH Ur Specific [place] Urine Protein Urine Glucose (UA) Urine Ketones Urine Blood Urine Nitrite Urine Bilirubin Urine Urobilinogen Ur Leukocyte Esterase Urine WBC (Auto) Urine RBC (Auto) Ur Epithelial Cells Urine Mucus Active Medications Generic Name Dose Route Start Last Admin Trade Name Freq PRN Reason Stop Dose Admin Acetaminophen 650 mg 03/13/18 18:18 03/14/18 05:55 Tylenol - PO 650 mg Q6H PRN Administration PAIN 4-6 Sodium Chloride 1,000 mls @ 150 mls/hr 03/13/18 15:30 03/14/18 05:55 Normal Saline - IV 150 mls/hr ASDIR MARGO Administration Cefazolin Sodium 1 gm/ 50 mls @ 100 mls/hr 03/14/18 10:00 Dextrose IVPB BID MARGO ASSESSMENT/PLAN: The pt is a 37 yo F G 5 P2,T2 - 19 week , no PMH, presented to the hospital complaining of back pain on left side radiating to left side of her abdomen that started 3 days ago. She is admitted for L hydronephrosis. Left hydronephrosis: -severe pain, WBC to 17.9, improved today, 2+ blood in urine, 19 weeks . Mild L hydronephrosis . - Cont. Ceftriaxone -consulted ID, will f/u recommendations -will f/u OBGYN recommendations, she will stay on 3rd floor -NS at 150 cc/hr -Tylenol changed to Po 650 mg q4h -Repeat KUB scan - pending -repeated urine culture pending -Cont IVF : -Second trimester- 19 weeks - US- showed viable fetus with heart present -will f/u OBGYN recommendations -cont hydration and monitoring DVT PPX: ambulating -scds bilaterally FEN: - Cont IVF -Monitor Lytes -Continue Nutrtion Dispo: Cont in pt mx Visit type - Emergency Visit Emergency Visit: Yes ED Registration Date: 03/13/18 Care time: The patient presented to the Emergency Department on the above date and was hospitalized for further evaluation of their emergent condition. - New Patient This patient is new to me today: Yes Date on this admission: 03/14/18 - Critical Care Critical Care patient: No - Discharge Referral Referred to [facility] No
[2018-03-14 07:45] LABS: ALBUMIN 2.5 g/dl (3.4-5.0); ANION GAP 5 (8-16); BILIRUBIN,TOTAL 0.2 mg/dL (0.2-1.0); BLOOD UREA NITROGEN 9 mg/dL (7-18); CALCIUM 7.8 mg/dL (8.5-10.1); CHLORIDE 107 mmol/L (98-107); CO2 24 mmol/L (21-32); CREATININE 0.7 mg/dL (0.55-1.02); GLUCOSE,RANDOM 83 mg/dL (74-106); MAGNESIUM 1.8 mg/dL (1.8-2.4); PHOSPHOROUS 2.9 mg/dL (2.5-4.9); POTASSIUM 4.1 mmol/L (3.5-5.1); SGOT/AST 18 U/L (15-37); SGPT/ALT 17 U/L (12-78); SODIUM 136 mmol/L (136-145)
[2018-03-14 07:46] LABS: ALK PHOS 50 U/L (45-117)
[2018-03-14 07:54] LABS: BASO % 0.5 % (0-2.0); EOS % 0.6 % (0-4.5); HEMATOCRIT 32.4 % (32.4-45.2); LYMPH % 13.6 % (8-40); MCH 29.6 pg (25.7-33.7); MCHC 33.9 g/dl (32.0-36.0); MEAN CELL VOLUME 87.3 fl (80-96); MEAN PLT VOLUME 9.7 fl (7.5-11.1); MONO % 8.1 % (3.8-10.2); NEUT % 77.2 % (42.8-82.8); PLATELET COUNT 242 K/MM3 (134-434); RBC 3.71 M/mm3 (3.60-5.2); RDW 12.7 % (11.6-15.6); WHITE BLOOD COUNT 12.8 K/mm3 (4.0-10.0)
--- NOTE | 2018-03-14 08:20 | PN ---
Progress Note (short form) - Note Progress Note: ID Full note dictated Afebrile Flank pain left Selected Entries 03/14/18 06:00 Temperature 98.4 F Pulse Rate 72 Respiratory 18 Rate Blood Pressure 110/60 Microbiology Laboratory Tests 03/13/18 03/13/18 03/14/18 09:55 09:55 06:00 WBC 17.9 H D 12.8 H Hgb 11.0 Hct 32.4 Plt Count 242 Ur Leukocyte Esterase Negative Urine WBC (Auto) 3 Urine RBC (Auto) 119 Assessment Hydroneprosis of with component of UTI ? small kidney stone per urology Plan Agree ceftriaxone in to tomorrow with switch to Keflex for another7 days upon discharge MRSA screening Problem List - Problems (1) UTI (urinary tract infection) Code(s): N39.0 - URINARY TRACT INFECTION, SITE NOT SPECIFIED (2) hydronephrosis during in second trimester, antepartum Code(s): O35.8XX0 - MATERNAL CARE FOR OTH ABNORMALITY AND DAMAGE, UNSP (3) MRSA (methicillin resistant staph aureus) culture positive Code(s): Z22.322 - CARRIER OR SUSPECTED CARRIER OF METHICILLIN RESIS STAPH
--- NOTE | 2018-03-14 09:00 | CONS ---
DATE OF CONSULTATION: DATE OF DICTATION: 03/14/2018 This is a 37-year-old woman, 19 weeks , who presents to the hospital with left-sided flank pain radiating across the left side of her abdomen for about 3 days. She has been getting care regularly with Dr. Reed and has 2 children at home where she lives with her . Thus far, her has been uneventful. She had no fever here, but her white count was noted to be elevated, and she was empirically given antibiotics, currently on cefazolin. Blood cultures were not obtained, but she has a urine culture which is currently pending. She has been seen by Urology and has hydronephrosis of and the possibility of a small renal stone. She is still symptomatic with regard to her flank and left lower quadrant pain. She has no chills and denies other significant past medical history other than cesarian sections. SOCIAL HISTORY: She still smokes on a daily basis but does not use drugs and has been HIV tested negative. No history of recent travel. FAMILY HISTORY: She apparently was adopted. REVIEW OF SYSTEMS: Respiratory: No cough or shortness of breath. Cardiac: No chest pain, history of murmur. Gastrointestinal: Abdominal discomfort in the left flank and left lower quadrant. Neuromuscular: No joint pains. Skin: No rash. PHYSICAL EXAMINATION: General: She was an alert woman in no acute distress. Vital Signs: Her temperature was 98.4, pulse 72, blood pressure 110/60, respirations 18. Neck: Supple, without adenopathy. Lungs: Clear to P&A. Heart: S1, S2. Regular rhythm without audible murmur or gallop. Abdomen: Had mild to moderate left lower quadrant pain as well as positive CVA tenderness. Extremities: No clubbing, cyanosis, or edema. LABORATORY: The urinalysis with 3 WBCs, 119 RBCs, negative leukocyte esterase. White count initially 7.9, is now 12.8. Chemistry is within normal limit. Renal ultrasound shows mild hydronephrosis. No obvious stone, though read as possible stone by Urology. Obstetrical ultrasound shows live intrauterine , gestational age 19 weeks. ASSESSMENT: Hydronephrosis of , possible small left kidney stone. Given the elevated white count, I would assume a component of urinary tract infection despite the seemingly normal urinalysis. She is currently on cefazolin twice a day. I would switch her to 1 g daily of ceftriaxone, and by tomorrow, assuming she remains afebrile and has a normal white count, consideration could be given to discharge with outpatient followup with her pillow filler. She could be given Keflex on discharge, but depending on results of urine culture. 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 She is on contact isolation currently. Will do methicillin-resistant Staphylococcus aureus screening. NAVEEN WINSTON M.D. [id number]
[2018-03-14] MEDS ORDERED: CEFAZOLIN 1 GM in DEXTROSE 5%-WATER - 50 ML IVPB SCH (10:00)
[2018-03-14] MEDS ORDERED: CEFTRIAXONE 1 GM in DEXTROSE 5%-WATER - 50 ML IVPB SCH (10:00)
[2018-03-14] MEDS ORDERED: cefTRIAXone SODIUM 1 GM VIAL ONE ×2 (10:08→10:11)
[2018-03-14] MEDS ORDERED: DEXTROSE 5%-WATER - 50 ML IVPB ONE ×2 (10:08→10:11)
[2018-03-14] MEDS ORDERED: ACETAMINOPHEN 325 MG TABLET (FP) PO PRN ×2 (11:50→12:03)
--- NOTE | 2018-03-14 12:12 | PN ---
Teaching Attending Note Name of Resident: Angela Garrison ATTENDING PHYSICIAN STATEMENT I saw and evaluated the patient. I reviewed the resident's note and discussed the case with the resident. I agree with the resident's findings and plan as documented with exceptions below. SUBJECTIVE: Patient seen and examined. still with left flank and left groin pain, no urinary symptoms, fevers or chills. Tylenol helping. OBJECTIVE: Vital Signs Period Temp Pulse Resp BP Sys/[place] Pulse Ox Last 24 Hr 97.6 F-99.4 F 60-76 16-20 95-121/51-80 99-100 Intake & Output 03/11/18 03/12/18 03/13/18 03/14/18 23:59 23:59 23:59 23:59 Intake Total 1808 Balance 1808 Weight 150 lb General: lying in bed, mild clara Abdomen:soft, distended, Left CVA tenderness, LMQ/Upper LLQ tenderness, no voluntary or involuntary guarding or rigidity Extremities: no edema Home Medication List Medication Instructions Recorded Confirmed Type NK [No Known Home Medication] 04/19/17 03/13/18 History Active Medications Generic Name Dose Route Start Last Admin Trade Name Freq PRN Reason Stop Dose Admin Acetaminophen 650 mg 03/14/18 12:03 Tylenol - PO Q4H PRN PAIN Sodium Chloride 1,000 mls @ 150 mls/hr 03/13/18 15:30 03/14/18 05:55 Normal Saline - IV 150 mls/hr ASDIR MARGO Administration Ceftriaxone Sodium 1 gm/ 50 mls @ 100 mls/hr 03/14/18 10:00 03/14/18 10:19 Dextrose IVPB 100 mls/hr DAILY MARGO Administration Protocol Laboratory Results - last 24 hr 03/14/18 03/14/18 06:00 06:00 WBC 12.8 H RBC 3.71 Hgb 11.0 Hct 32.4 MCV 87.3 MCH 29.6 MCHC 33.9 RDW 12.7 Plt Count 242 MPV 9.7 Neutrophils % 77.2 Lymphocytes % 13.6 D Monocytes % 8.1 Eosinophils % 0.6 D Basophils % 0.5 Nucleated RBC % 0 Sodium 136 Potassium 4.1 Chloride 107 Carbon Dioxide 24 Anion Gap 5 L BUN 9 Creatinine 0.7 Creat Clearance w eGFR > 60 Random Glucose 83 Calcium 7.8 L Phosphorus 2.9 Magnesium 1.8 Total Bilirubin 0.2 D AST 18 ALT 17 Alkaline Phosphatase 50 Total Protein 6.0 L Albumin 2.5 L Microbiology 03/13/18 09:50 Urine - Urine Clean Catch Urine Culture - Final Contaminated: Please Repeat ASSESSMENT AND PLAN: 37 yof 19 weeks 2 days with back pain, found with hematuria, leucocytosis and mild left hydronephrosis. -Mild left hydronephrosis, ?UTI vs small stone vs related. -hematuria, ?, vs nephrolithiasis (less likely) vs infectious process -Flank/abdominal pain. Above vs positioning. -leucocytosis, ?from vs stress response, vs UTI, improved -19 weeks 2 days Plan: Ceftriaxone day 2, Urine cultures noted, repeat but likely d/c in 24 hours on keflex if improved. Urology input noted. repeat renal/bladder US to assess obstructive changes. WBC improved, renal function stable. Increase tylenol to q4h prn. passenger car inspector input appreciated. FHR qshift as discussed with nursing. Discussed with Dr. Norman, leucocytosis and mild left hydronephrosis could be explained from but positive hematuria, back symptoms and urinary d/c d /c planning in 24 hours based on clinical improvement, if no new concerns. Plan discussed with patient in detail, all questions answered.
[2018-03-14 17:47] VITALS: PULSE 80; TEMP 99
[2018-03-14 18:57] VITALS: BP 110/70
--- NOTE | 2018-03-14 21:23 | HOSP ---
Physical Examination Vital Signs: Vital Signs Temperature 99.0 F 03/14/18 18:00 Pulse Rate 80 03/14/18 18:00 Respiratory Rate 20 03/14/18 18:00 Blood Pressure 110/70 03/14/18 18:00 O2 Sat by Pulse Oximetry (%) 100 03/13/18 16:59 Labs: CBC, BMP 03/14/18 06:00 03/14/18 06:00 Hospitalist Encounter Assessment: PATIENT ADAMENTLY REFUSES HOSPITALIZATION AND WANTS TO LEAVE AGAINST MEDICAL ADVICE. I EXPLAINED TO PATIENT THAT AGAINST MEDICAL ADVICE IS DANGEROUS AND CAN LEAD TO WORSENING OF CONDITION, PERMANENT DISABILITY, AND EVEN . I USED LAY TERMINOLOGY. I ANSWERED ALL QUESTIONS. ITS CLEAR TO ME THAT SHE UNDERSTANDS THE RISKS AND BENEFITS OF CONTINUOUS HOSPITAL STAY AND LEAVING AGAINST MEDICAL ADVISE. SHE HAS THE CAPACITY TO MAKE HER OWN DECISIONS. SHE AGREES TO FOLLOW UP WITH HER PRIMARY MEDICAL DOCTOR THIS WEEK AND RETURN TO THE EMERGENCY DEPARTMENT IF SYMPTOMS WORSEN. PRESCRIPTION FOR KEFLEX 500MG PO BID for 8 days sent to Pharmacy. I explained to patient that it was sent over to the pharmacy and if there is any trouble to let us know. Visit type - Emergency Visit Emergency Visit: Yes ED Registration Date: 03/13/18 Care time: The patient presented to the Emergency Department on the above date and was hospitalized for further evaluation of their emergent condition. - New Patient This patient is new to me today: Yes Date on this admission: 03/14/18 - Critical Care Critical Care patient: No
--- NOTE | 2018-03-15 07:32 | DS ---
Physical Exam: SUBJECTIVE: Patient seen and examined OBJECTIVE: Vital Signs Period Temp Pulse Resp BP Sys/[place] Pulse Ox Last 24 Hr 99.0 F-99.4 F 68-80 20-20 110-110/60-70 PHYSICAL EXAM GENERAL: The patient is awake, alert, and fully oriented, in no acute distress. HEAD: Normal with no signs of trauma. EYES: PERRL, extraocular movements intact, sclera anicteric, conjunctiva clear. ENT: Ears normal, nares patent, oropharynx clear without exudates, moist mucous membranes. NECK: Trachea midline, full range of motion, supple. LUNGS: Breath sounds equal, clear to auscultation bilaterally, no wheezes, no crackles, no accessory muscle use. HEART: Regular rate and rhythm, S1, S2 without murmur, rub or gallop. ABDOMEN: Soft, nontender, nondistended, normoactive bowel sounds, no guarding, no rebound, no hepatosplenomegaly, no masses. EXTREMITIES: 2+ pulses, warm, well-perfused, no edema. NEUROLOGICAL: Cranial nerves II through XII grossly intact. Normal speech, gait not observed. PSYCH: Normal mood, normal affect. SKIN: Warm, dry, normal turgor, no rashes or lesions noted. LABS Laboratory Results - last 24 hr 03/14/18 03/14/18 06:00 06:00 WBC 12.8 H RBC 3.71 Hgb 11.0 Hct 32.4 MCV 87.3 MCH 29.6 MCHC 33.9 RDW 12.7 Plt Count 242 MPV 9.7 Neutrophils % 77.2 Lymphocytes % 13.6 D Monocytes % 8.1 Eosinophils % 0.6 D Basophils % 0.5 Nucleated RBC % 0 Sodium 136 Potassium 4.1 Chloride 107 Carbon Dioxide 24 Anion Gap 5 L BUN 9 Creatinine 0.7 Creat Clearance w eGFR > 60 Random Glucose 83 Calcium 7.8 L Phosphorus 2.9 Magnesium 1.8 Total Bilirubin 0.2 D AST 18 ALT 17 Alkaline Phosphatase 50 Total Protein 6.0 L Albumin 2.5 L HOSPITAL COURSE: Date of Admission:03/13/18 Date of Discharge: 03/15/18 Discharge Summary Reason For Visit: HYDRONEPHROSIS/SECOND TRIMESTER - Instructions Disposition: AGAINST MEDICAL ADVICE - Home Medications Comprehensive Discharge Medication List: Ambulatory Orders Cephalexin Monohydrate [Keflex -] 500 mg PO BID #16 capsule 03/14/18 - Discharge Referral Referred to [facility] No
--- NOTE | 2018-03-15 18:31 | DS ---
Physical Exam: LABS HOSPITAL COURSE: Date of Admission:03/13/18 Date of Discharge: 03/15/18 The pt is a 37 yo F G 5 P2,T2 - 19 week , no PMH, presented to the hospital complaining of back pain on left side radiating to left side of her abdomen that started 3 days ago. She was admitted for L hydronephrosis. She was placed on rocephin and iv fluids and received tylenol for pain. US showed a viable 19week fetus. Abd US showed L mild hydronephrosis, She was treated for a UTI and screened for MRSA (negative). Pt decided to sign out AMA at night. Pt adamantly refused hospitalization and wanted to leave against medical advice. The risks of leaving AMA were explained to the the pt including worsening of the condition, permanent disability and even . Explanations were done in simple language and questions were answered. She understood the risks and benefits of choosing to stay or leave against medical advice. She has capacity and made the decision to leave. She agreed to follow up with her shift lab technician as an outpatient and return to the emergency room if her condition worsens. She went home on oral antibiotics- Keflex. Minutes to complete discharge: 38 Discharge Summary Reason For Visit: HYDRONEPHROSIS/SECOND TRIMESTER - Instructions Disposition: AGAINST MEDICAL ADVICE - Home Medications Comprehensive Discharge Medication List: Ambulatory Orders Cephalexin Monohydrate [Keflex -] 500 mg PO BID #16 capsule 03/14/18 This patient is new to me today: Yes Date on this admission: 03/15/18 Emergency Visit: Yes ED Registration Date: 03/13/18 Care time: The patient presented to the Emergency Department on the above date and was hospitalized for further evaluation of their emergent condition. Critical Care patient: No - Discharge Referral Referred to [facility] No
== END 2018-03-14 21:15 | disposition left against medical advice (07) ==
LOC: JER 09:10 → JERBED 17:05 → J3W 18:55
PROVIDERS: ADMIT Hospitalist; ATTEND Hospitalist
PROC: 3E03329 Introduction of Other Anti-infective into Peripheral Vein, Percutaneous Approach (ICD-10-PCS; principal; 2018-03-13)
PROC: 3E0337Z Introduction of Electrolytic and Water Balance Substance into Peripheral Vein, Percutaneous Approach (ICD-10-PCS; 2018-03-13)
PROC: 3E033GC Introduction of Other Therapeutic Substance into Peripheral Vein, Percutaneous Approach (ICD-10-PCS; 2018-03-13)
DX: O99.89 Other specified diseases and conditions complicating pregnancy, childbirth and the puerperium (principal); O23.42 Unspecified infection of urinary tract in pregnancy, second trimester; N13.30 Unspecified hydronephrosis; Z3A.19 19 weeks gestation of pregnancy; D72.829 Elevated white blood cell count, unspecified; F17.200 Nicotine dependence, unspecified, uncomplicated; F32.9 Major depressive disorder, single episode, unspecified; F41.9 Anxiety disorder, unspecified; R31.9 Hematuria, unspecified; M54.9 Dorsalgia, unspecified; R10.9 Unspecified abdominal pain; Z22.322 Carrier or suspected carrier of Methicillin resistant Staphylococcus aureus
CPT/HCPCS: 36415; 76775-TC; 76815-TC; 76856-TC; 80048; 80053; 81003; 81015; 83735; 84100; 84702; 85025; 87081; 87086; 96365; 96375; 99282-25; G0378; J7030

== ENCOUNTER 2019-05-19 13:12 | Emergency (ER) | payer OTHER ==
[2019-05-19 13:32] VITALS: BP 100/40; PULSE 89; TEMP 98.3; BMI 28.3
--- NOTE | 2019-05-19 13:47 | PDOC ---
Rapid Medical Evaluation Chief Complaint: Pain, Acute Time Seen by Provider: 05/19/19 13:26 Medical Evaluation: Allergies Allergy/AdvReac Type Severity Reaction Status Date / Time No Known Allergies Allergy Verified 05/19/19 13:29 Vital Signs Temp Pulse Resp BP Pulse Ox 98.3 F 89 18 100/40 L 100 05/19/19 13:29 05/19/19 13:29 05/19/19 13:29 05/19/19 13:29 05/19/19 13:29 05/19/19 13:46 I have performed a brief in-person evaluation of this patient. The patient presents with a chief complaint of: 18wks with abdominal pain Pertinent physical exam findings: gravid abdomen I have ordered the following: labs, urine The patient will proceed to the ED for further evaluation. Discharge Disposition - Diagnosis Abdominal pain affecting - Referrals - Patient Instructions - Post Discharge Activity
--- NOTE | 2019-05-19 14:17 | PDOC ---
History of Present Illness <Dimitri Melton - Last Filed: 05/19/19 17:08> - General History Source: Patient Exam Limitations: No Limitations - History of Present Illness Initial Comments: 05/19/19 16:06 Patient is a 38F , 16 weeks , here today complaining of several days of lower abdominal pain, described as a cramping pain. It radiates to the left aspect of her groin. Denies fevers, chills, nausea, vomiting. Denies chest pain, shortness of breath. Denies dysuria. Denies vaginal discharge and bleeding. Denies urinary frequency. Saw her OB 1 week ago with US normal. Patient states that she is concerned because her partner was "cheating" on her. Patient states that she has some swelling around her eyes with this , and every prior. No complications with her prior pregnancies, did have with each . <Andrea Langley - Last Filed: 05/19/19 17:14> - General Chief Complaint: Pain, Acute Stated Complaint: SIXTEEN WK TN/ABD PAIN Time Seen by Provider: 05/19/19 13:26 Past History <Dimitri Melton - Last Filed: 05/19/19 17:08> - Past Medical History Anemia: No Asthma: No Cancer: No Cardiac Disorders: No CVA: No COPD: No CHF: No DVT: No Dementia: No Diabetes: No GI Disorders: No Disorders: No HTN: No Hypercholesterolemia: No Kidney Stones: No Liver Disease: No Psychiatric Problems: Yes (BIPOLAR, ANXIETY, DEPRESSION) Seizures: No Thyroid Disease: No - Surgical History Abdominal Surgery: Yes (c/s) Appendectomy: No Cardiac Surgery: No Cholecystectomy: No Lung Surgery: No Neurologic Surgery: No Orthopedic Surgery: No - Reproductive History (#): 5 Para: 1 PID: No Therapeutic (s) & number: Yes (2) Spontaneous : 1 - Immunization History Td Vaccination: Yes Immunization Up to Date: Yes - Suicide/Smoking/Psychosocial Hx Smoking Status: Yes Smoking History: Current every day smoker Years of Tobacco Use: 15 Have you smoked in the past 12 months: Yes Number of Cigarettes Smoked Daily: 5 Cigars Per Day: 0 Information on smoking cessation initiated: No 'Breaking Loose' booklet given: 12/19/16 Hx Alcohol Use: No Drug/Substance Use Hx: No Substance Use Type: None Hx Substance Use Treatment: No <BonAndrea huitron - Last Filed: 05/19/19 17:14> - Past Medical History Allergies/Adverse Reactions: Allergies Allergy/AdvReac Type Severity Reaction Status Date / Time No Known Allergies Allergy Verified 05/19/19 13:29 Home Medications: Ambulatory Orders NK [No Known Home Medication] 06/01/18 Review of Systems - Review of Systems Able to Perform ROS?: Yes Comments:: 05/19/19 16:12 GENERAL/CONSTITUTIONAL: No fever or chills. No weakness. HEAD, EYES, EARS, NOSE AND THROAT: No change in vision. No sore throat. CARDIOVASCULAR: No chest pain or shortness of breath RESPIRATORY: No cough, wheezing, or hemoptysis. GASTROINTESTINAL: No nausea, vomiting, diarrhea or constipation. GENITOURINARY: No dysuria, frequency, or change in urination. MUSCULOSKELETAL: No joint or muscle swelling or pain. No neck or back pain. SKIN: No rash NEUROLOGIC: No headache, vertigo, loss of consciousness, or change in strength/ sensation. ENDOCRINE: No increased thirst. No abnormal weight change HEMATOLOGIC/LYMPHATIC: No anemia, easy bleeding, or history of blood clots. ALLERGIC/IMMUNOLOGIC: No hives or skin allergy. <KorinAndrea - Last Filed: 05/19/19 17:14> *Physical Exam - Vital Signs Last Vital Signs Temp Pulse Resp BP Pulse Ox 98.3 F 89 18 100/40 L 100 05/19/19 13:29 05/19/19 13:29 05/19/19 13:29 05/19/19 13:29 05/19/19 13:29 <Dimitri Melton - Last Filed: 05/19/19 17:08> - Vital Signs Last Vital Signs Temp Pulse Resp BP Pulse Ox 98.3 F 89 18 100/40 L 100 05/19/19 13:29 05/19/19 13:29 05/19/19 13:29 05/19/19 13:29 05/19/19 13:29 - Physical Exam Comments: 05/19/19 16:12 GENERAL: Awake, alert, and fully oriented, in no acute distress HEAD: No signs of trauma, normocephalic, atraumatic EYES: PERRLA, EOMI, sclera anicteric, conjunctiva clear ENT: Auricles normal inspection, hearing grossly normal, nares patent, oropharynx clear without exudates. Moist mucosa NECK: Normal ROM, supple, no lymphadenopathy, JVD, or masses LUNGS: No distress, speaks full sentences, clear to auscultation bilaterally HEART: Regular rate and rhythm, normal S1 and S2, no murmurs, rubs or gallops, peripheral pulses normal and equal bilaterally. ABDOMEN: Soft, nontender, normoactive bowel sounds. No guarding, no rebound. No masses PELVIC: Normal external genitalia, no cmt, small amount of normal physiologic discharge, closed cervical os. EXTREMITIES: Normal inspection, Normal range of motion, no edema. No clubbing or cyanosis. NEUROLOGICAL: Cranial nerves II through XII grossly intact. Normal speech, normal gait, no focal sensorimotor deficits SKIN: Warm, Dry, normal turgor, no rashes or lesions noted. <Andrea Langley - Last Filed: 05/19/19 17:14> ED Treatment Course - LABORATORY CBC & Chemistry Diagram: 05/19/19 15:23 05/19/19 15:23 - ADDITIONAL ORDERS Additional order review: Laboratory Results 05/19/19 05/19/19 05/19/19 15:23 15:23 15:23 Sodium Potassium Chloride Carbon Dioxide Anion Gap BUN Creatinine Est GFR (CKD-EPI)AfAm Est GFR (CKD-EPI)NonAf Random Glucose Calcium Total Bilirubin AST ALT Alkaline Phosphatase Total Protein Albumin Beta HCG, Quant Cancelled Urine Color Yellow Urine Appearance Cloudy Urine pH 6.5 Ur Specific [place] 1.019 Urine Protein Negative Urine Glucose (UA) Negative Urine Ketones Negative Urine Blood Negative Urine Nitrite Negative Urine Bilirubin Negative Urine Urobilinogen 1.0 Ur Leukocyte Esterase Negative Blood Type A POSITIVE Antibody Screen Negative 05/19/19 15:23 Sodium 137 Potassium 3.7 Chloride 105 Carbon Dioxide 26 Anion Gap 6 L BUN 7.7 Creatinine 0.5 L Est GFR (CKD-EPI)AfAm 144.31 Est GFR (CKD-EPI)NonAf 124.51 Random Glucose 89 Calcium 8.7 Total Bilirubin 0.1 L AST 8 L ALT 12 L Alkaline Phosphatase 53 Total Protein 6.2 L Albumin 2.8 L Beta HCG, Quant 26766.8 Urine Color Urine Appearance Urine pH Ur Specific [place] Urine Protein Urine Glucose (UA) Urine Ketones Urine Blood Urine Nitrite Urine Bilirubin Urine Urobilinogen Ur Leukocyte Esterase Blood Type Antibody Screen 05/19/19 15:23 RBC 3.76 MCV 87.3 MCHC 34.0 RDW 13.4 MPV 9.7 Neutrophils % 71.8 Lymphocytes % 20.1 D Monocytes % 7.0 Eosinophils % 0.8 Basophils % 0.3 <Dimitri Melton - Last Filed: 05/19/19 17:08> - LABORATORY CBC & Chemistry Diagram: 05/19/19 15:23 05/19/19 15:23 <Andrea Langley - Last Filed: 05/19/19 17:14> Medical Decision Making - Medical Decision Making 05/19/19 16:13 Patient is 38F 16 wk woman here today with lower abdominal pain. Normal vitals and exam. Will treat with tylenol. Will evaluate with basic labs, type and screen, us. Initial US did not comment on , is normal. 05/19/19 17:13 CBC normal. CMP normal. UA clear. US normal. Patient's symptoms improved and left AMA before results finished. <Andrea Langley - Last Filed: 05/19/19 17:14> *DC/Admit/Observation/Transfer - Discharge Dispostion Decision to Admit order: No <Dimitri Melton - Last Filed: 05/19/19 17:08> - Discharge Dispostion Decision to Admit order: No <Andrea Langley - Last Filed: 05/19/19 17:14> Diagnosis at time of Disposition: Abdominal pain affecting - Discharge Dispostion Disposition: AGAINST MEDICAL ADVICE Condition at time of disposition: Good - Referrals Referrals: Cali Reed MD [Staff Physician] - - Patient Instructions Printed Discharge Instructions: DI for -- Discomforts and Remedies
[2019-05-19 15:54] LABS: PH,URINE 6.5 (5.0-8.0); URINE APPEARANCE CLOUDY; URINE BILIRUBIN NEGATIVE (NEGATIVE); URINE COLOR YELLOW; URINE GLUCOSE (UA) NEGATIVE (NEGATIVE); URINE KETONE NEGATIVE (NEGATIVE); URINE LEUK ESTERASE NEGATIVE (NEGATIVE); URINE NITRITE NEGATIVE (NEGATIVE); URINE PROTEIN NEGATIVE (NEGATIVE)
[2019-05-19 15:57] LABS: BASO % 0.3 % (0-2.0); EOS % 0.8 % (0-4.5); MCH 29.7 pg (25.7-33.7)
[2019-05-19 16:17] LABS: ALBUMIN 2.8 g/dl (3.4-5.0); BILIRUBIN,TOTAL 0.1 mg/dL (0.2-1); BLOOD UREA NITROGEN 7.7 mg/dL (7-18); CALCIUM 8.7 mg/dL (8.5-10.1); CREATININE 0.5 mg/dL (0.55-1.3); POTASSIUM 3.7 mmol/L (3.5-5.1); TOT PROT 6.2 g/dl (6.4-8.2)
[2019-05-19 16:28] LABS: HEMATOCRIT 32.8 % (32.4-45.2); HEMOGLOBIN 11.2 GM/dL (10.7-15.3); LYMPH % 20.1 % (8-40); MEAN CELL VOLUME 87.3 fl (80-96); MEAN PLT VOLUME 9.7 fl (7.5-11.1); NEUT % 71.8 % (42.8-82.8); PLATELET COUNT 241 K/MM3 (134-434); RBC 3.76 M/mm3 (3.60-5.2); RDW 13.4 % (11.6-15.6); WHITE BLOOD COUNT 11.2 K/mm3 (4.0-10.0)
--- NOTE | 2019-05-19 17:08 | PDOC ---
Documentation entered by Candy Nickerson SCRIBE, acting as scribe for Dimitri Melton MD. Dimitri Melton MD: This documentation has been prepared by the scribe, Candy Nickerson SCRIBE, under my direction and personally reviewed by me in its entirety. I confirm that the documentation accurately reflects all work, treatment, procedures, and medical decision making performed by me. Attending Attestation - Resident Resident Name: Andrea Langley - ED Attending Attestation I have performed the following: I have examined & evaluated the patient, The case was reviewed & discussed with the resident, I agree w/resident's findings & plan, Exceptions are as noted - HPI HPI: 05/19/19 16:04 The patient is a 38-year-old female who is 16 weeks , with a past medical history of anxiety, depression, PTSD, and LT hydronephrosis, who presents to the ED with 3-4d abdominal pain. She describes the pain as constant , stabbing in sensation, radiating from her abd to lower abdomen to her suprapbic region, worse whe nshe is walking, but sometime she gets it when seated. She denies any vaginal bleeding, but reports having a vaginal odor. She denies any dysuria or increased vaginal discharge. The patient reports a history of 3 C-sections with no complications. The patient states that she has been more depressed lately after finding out that her significant other was cheating. The patient denies fevers, chills, nausea, vomiting, or diarrhea. Denies any chest pain, palpitations or shortness of breath. Denies any weakness, dizziness , or changes in strength or sensation. Allergies: NKA Social History: ppd (15 years) Surgical History: None reported. - Physicial Exam PE: 05/19/19 16:04 GENERAL: The patient is awake, alert, and fully oriented, Nontoxic - in no acute distress. HEAD: Normocephalic, atraumatic. EYES: extraocular movements intact, sclera anicteric, conjunctiva clear. ENT: Normal voice, Moist mucous membranes. NECK: Normal range of motion, supple LUNGS: Breath sounds equal, clear to auscultation bilaterally. No wheezes, no rhonchi, no rales. HEART: Regular rate and rhythm, without murmur, rub or gallop. ABDOMEN: Soft, nontender, gravid abd, No guarding, no rebound. No CVA tenderness EXTREMITIES: Normal range of motion, no edema. NEUROLOGICAL: No facial assymetry, Normal speech, moving all 4 extremities sponaneously and symmetrically PSYCH: Normal mood, normal affect. SKIN: Warm, Dry, normal turgor, - Medical Decision Making 05/19/19 15:57 ddx - uti, utheritis, threatened ab, round ligament pain pt AMA prior to results stating she needs to pickup her kids. risks of leaving and return precautions were discussed 05/19/19 16:57 TVUS - +IUP with FHR labs [id number]
== END 2019-05-19 17:30 | disposition left against medical advice (07) ==
LOC: JER 13:12
DX: O26.892 Other specified pregnancy related conditions, second trimester (principal); R10.30 Lower abdominal pain, unspecified; Z3A.16 16 weeks gestation of pregnancy
CPT/HCPCS: 36415; 76705-TC; 76815-TC; 80053; 81003; 84702; 85025; 86850; 86900; 86901; 87086; 87186; 99282-25

== ENCOUNTER 2019-10-05 20:05 | Inpatient (IN) | payer OTHER ==
[2019-10-05] MEDS ORDERED: CITRIC ACID/SODIUM CITRATE 30 ML UNIT-DOSE CUP PO ONE (23:36)
[2019-10-05] MEDS ORDERED: ceFAZolin 2 GRAM PREMIX BAG IVPB ONE (23:45)
[2019-10-05] MEDS ORDERED: ELECTROLYTE-148 SOLN 1,000 ML IV SCH (23:45)
--- NOTE | 2019-10-05 23:46 | HP ---
Past Medical History - Primary Care Physician PCP:: Primo Nugent - Admission Chief Complaint: Patient reports incisional pain for the last week that has worsened, now 7-8, decreased FM. History Source: Patient Limitations to Obtaining History: No Limitations - Past Medical History [employer]: No: Alzheimer's, CVA, Dementia, Migraine, Multiple Sclerosis, Peripheral Neuropathy, Parkinson's, Seizure, Syncope, TIA, Vertigo, Other Cardiovascular: No: AFIB, Aneurysm, Aortic Insufficiency, Aortic Stenosis, CAD, CHF, Deep Vein Thrombosis, HTN, Hyperlipdemia, [place], Mitral Insufficiency, Mitral Stenosis, Murmur, Pulmonary Hypertension, Other Pulmonary: No: Asthma, Bronchitis, Cancer, COPD, O2 Dependent, Pneumonia, Previously Intubated, Pulmonary Embolus, Pulmonary Fibrosis, Sleep Apnea, Other Gastrointestinal: No: Ascites, Cancer, Constipation, Crohn's Disease, Diverticulitis, Diverticulosis, Esophageal Varices, Gastritis, GERD, GI Bleed, Hemorrhoids, Hiatal Hernia, Inflamatory Bowel Disease, Irritable Bowel Disease, Pancreatitis, Peptic Ulcer Disease, Ulcerative Colitis, Other Hepatobiliary: No: Cirrhosis, Cholelithiasis, Cholecystitis, Choledocholithiasis , Hepatitis A, Hepatitis B, Hepatitis C, Other Renal/: No: Renal Failure, Renal Inusuff, BPH, Cancer, Hematuria, Hemodialysis , Neurogenic Bladder, Renal Calculi, UTI, Other Reproductive: No: Ectopic , Endometriosis, Fibroids, PID, Polycystic Ovary Syndrome, Postmenopausal, Other ...: 8 ...Para: 3 ...Term: 3 ...: 0 ...Spon : 0 ...Induced : 3 ... Weeks Gestation by Dates: 37.6 ...EDC by Dates: 10/20/19 Heme/Onc: No: Anemia, B12 Deficiency, Bleeding Disorder, Cancer, Current Chemotherapy, Current Radiation Therapy, Hemochromatosis, Hypercoaguable State, Myeloproliferative Synd, Sickle Cell Disease, Sickle Cell Trait, Thrombocytopenia, Other Infectious Disease: No: AIDS, C-Diff, Herpes Zoster, HIV, MRSA, STD's, Tuberculosis, VREF, Other Psych: No: Addictions, Anxiety, Bipolar, Depression, Panic, Psychosis, Schizophrenia, Other Musculoskeletal: No: Bursitis, Chronic low back pain, Hemiparesis, Hemiplegia, Osteoarthritis, Paraplegia, Other Rheumatology: No: Fibromyalgia, Gout, Lupus, Rheumatoid Arthritis, Sarcoidosis, Vasculitis, Other ENT: No: Allergic Rhinitis, Sinusitis, Other Endocrine: No: [place]'s Disease, [place]'s Disease, Diabetes Insipidus, Diabetes Mellitus, Hyperparathyroidism, Hyperthyroidism, Hypothyroidism, Osteopenia, SIADH, Other Dermatology: No: Basal Cell, Cellulitis, Eczema, Melanoma, Psoriasis, Squamous Cell, Other - Past Surgical History Past Surgical History: Yes: (x 3, patient denies any complications) Hx Myomectomy: No Hx Transabdominal Cerclage: No - Smoking History Smoking history: Current every day smoker Have you smoked in the past 12 months: Yes Aproximately how many cigarettes per day: 5 - Alcohol/Substance Use Hx Alcohol Use: No Home Medications - Allergies Allergies/Adverse Reactions: Allergies Allergy/AdvReac Type Severity Reaction Status Date / Time No Known Allergies Allergy Verified 08/25/19 01:08 Family Medical History Family History: Unremarkable Review of Systems Findings/Remarks: Incisional tenderness, patient in distress secondary to pain. She denies any improvement with the pain despite IV fluids - Review of Systems Constitutional: reports: No Symptoms Eyes: reports: No Symptoms HENT: reports: No Symptoms Neck: reports: No Symptoms Cardiovascular: reports: No Symptoms Respiratory: reports: No Symptoms Gastrointestinal: reports: No Symptoms, Abdominal Pain (incisional pain) Genitourinary: reports: No Symptoms Breasts: reports: No Symptoms Reported Musculoskeletal: reports: No Symptoms Integumentary: reports: No Symptoms Neurological: reports: No Symptoms Endocrine: reports: No Symptoms, Unexplained Weight Gain Hematology/Lymphatic: reports: No Symptoms Psychiatric: reports: No Symptoms Pain Intensity: 8 (worse than before) Physical Exam - Maternity Vital Signs: Vital Signs Temperature 97.8 F 10/05/19 20:30 Pulse Rate 98 H 10/05/19 20:30 Respiratory Rate 20 10/05/19 20:30 Blood Pressure 127/80 10/05/19 20:30 O2 Sat by Pulse Oximetry (%) Constitutional: Yes: Mild Distress (due to pain) Eyes: Yes: Other (eyelid protuberance bilaterally) HENT: Yes: Atraumatic, Normocephalic Neck: Yes: Supple Cardiovascular: Yes: Regular Rate and Rhythm Lungs: Clear to auscultation Breast(s): Yes: Other (deferred) - Abdominal Exam/OB Contractions: Yes Regularity: Regular Intensity: Mod/Strong Monitor Mode: External Heart Rate (range): 135 Category: II (minimal variability) Accelerations: None Decelerations: Variable - Vaginal Exam/OB Vaginal Bleediing: No Dilatation (cm): 0 Effacement (%): 0 Amniotic Membrane Status: Intact Station: -3 - Physical Exam Musculoskeletal: Yes: WNL, Other (exquisite incisional tenderness on palpation) Extremities: Yes: WNL Edema: Yes Edema: LLE: Trace, RLE: Trace Deep Tendon Reflex Grade: Normal +2 ...Motor Strength: WNL Psychiatric: Yes: Alert, Oriented Imaging - Results Ultrasound: Report Reviewed Assessment/Plan 39 y/o P3 @ 37.6wks by 18wks sono presenting with worsening pain and non- reassuring tracing. Patient in discomfort and teary during examination with incisional tenderness, decreased movements, desiring bilateral salpingectomy for sterilization, socio-economic issues. Risks and complications of surgery discussed and all questions answered. -Proceed with CD at early term as indicated -SW consult PP -Informed consnet
[2019-10-06 00:10] LABS: BASO % 0.2 % (0-2.0); EOS % 0.7 % (0-4.5); HEMATOCRIT 30.9 % (32.4-45.2); HEMOGLOBIN 10.2 GM/dL (10.7-15.3); LYMPH % 17.8 % (8-40); MCH 28.2 pg (25.7-33.7); MCHC 32.9 g/dl (32.0-36.0); MEAN CELL VOLUME 85.5 fl (80-96); MEAN PLT VOLUME 10.3 fl (7.5-11.1); MONO % 7.7 % (3.8-10.2); NEUT % 73.6 % (42.8-82.8); PLATELET COUNT 219 K/MM3 (134-434); RBC 3.61 M/mm3 (3.60-5.2); RDW 14.3 % (11.6-15.6)
[2019-10-06 00:30] LABS: INR 1.02 (0.83-1.09)
[2019-10-06 00:32] LABS: ACTIVATED PTT 25.9 SECONDS (25.2-36.5)
[2019-10-06 00:34] LABS: BLOOD UREA NITROGEN 7.4 mg/dL (7-18); CALCIUM 8.3 mg/dL (8.5-10.1); CREATININE 0.7 mg/dL (0.55-1.3); POTASSIUM 3.8 mmol/L (3.5-5.1)
[2019-10-06] MEDS ORDERED: ONDANSETRON 4 MG/2 ML VIAL IVPUSH PRN (00:35)
[2019-10-06] MEDS ORDERED: SODIUM CHLORIDE 0.9% P/F 10 ML VIAL IJ ONE (00:53)
[2019-10-06] MEDS ORDERED: ceFAZolin SODIUM 1 GM VIAL ONE ×2 (00:53→01:19)
[2019-10-06] MEDS ORDERED: OXYTOCIN 10 UNITS/ML VIAL ONE (01:05)
[2019-10-06] MEDS ORDERED: KETOROLAC TROMETHAMINE 30 MG/1 ML VIAL ONE (01:19)
[2019-10-06] MEDS ORDERED: MIDAZOLAM HCL 2 MG/2 ML SINGLE DOSE VIAL ONE (01:26)
[2019-10-06] MEDS ORDERED: IBUPROFEN 800 MG/8 ML IJ IVPB PRN (02:23)
[2019-10-06] MEDS: OXYTOCIN 20 UNITS in 0.9% NS 20 UNIT/1,000 ML INFUS.BAG IV SCH (02:30)
--- NOTE | 2019-10-06 02:38 | OP ---
Operative Note - Note: Operative Date: 10/06/19 (dic # [id number]) Pre-Operative Diagnosis: early term, severe contractions, non-reassuring status Operation: RCS and sterilization Findings: see dictation Post-Operative Diagnosis: Same as Pre-op Surgeon: Primo Nugent District Sales Coordinator: Victorino Washington Anesthesia: Spinal Specimens Removed: segment of fallopian tubes Estimated Blood Loss (mls): 800 Drains, Volume Out (mls): 200 Fluid Volume Replaced (mls): 800 Operative Report Dictated: Yes
[2019-10-06 03:52] VITALS: BMI 34.3
[2019-10-06 07:01] LABS: COCAINE, UR NEGATIVE ng/ml (CUTOFF=300); METHADONE, UR NEGATIVE ng/ml (CUTOFF=300); PHENCYCLIDINE,URINE NEGATIVE ng/ml (CUTOFF=25); URINE AMPHETAMINES NEGATIVE ng/ml (CUTOFF=500); URINE BARBITURATES NEGATIVE ng/ml (CUTOFF=200)
[2019-10-06 07:18] LABS: OPIATES, URI POSITIVE ng/ml (CUTOFF=300); URINE BENZODIAZEPINES POSITIVE ng/ml (CUTOFF=200)
[2019-10-06 08:36] LABS: BASO % 0.3 % (0-2.0); HEMATOCRIT 30.9 % (32.4-45.2); HEMOGLOBIN 10.3 GM/dL (10.7-15.3); LYMPH % 7.7 % (8-40); MCH 28.6 pg (25.7-33.7); MCHC 33.4 g/dl (32.0-36.0); MEAN CELL VOLUME 85.7 fl (80-96); MEAN PLT VOLUME 9.9 fl (7.5-11.1); MONO % 6.9 % (3.8-10.2); NEUT % 85.1 % (42.8-82.8); PLATELET COUNT 219 K/MM3 (134-434); RDW 14.1 % (11.6-15.6); WHITE BLOOD COUNT 20.1 K/mm3 (4.0-10.0)
[2019-10-06 09:30] LABS: ANISOCYTOSIS 1+; MACROCYTOSIS 0; PLATELET ESTIMATE NORMAL
--- NOTE | 2019-10-06 10:58 | OP ---
DATE OF OPERATION: 10/06/2019 PREOPERATIVE DIAGNOSIS: A 39-year-old female para 3 at 37 and 6 weeks gestation presenting with severe contractions and abdominal pain, nonreassuring status, prior section x3 desiring sterilization. POSTOPERATIVE DIAGNOSIS: A 39-year-old female para 3 at 37 and 6 weeks gestation presenting with severe contractions and abdominal pain, nonreassuring status, prior section x3 desiring sterilization. PROCEDURE: Repeat low transverse section and sterilization via modified Cameron procedure. ATTENDING: Nancy Pastrana MD SECOND CRUSHER: LESTER Sahu ANESTHESIA: Spinal. ESTIMATED BLOOD LOSS: 800. INTRAVENOUS FLUIDS: 800 mL of crystalloid. URINE OUTPUT: 200 mL of clear urine. SPECIMENS: Segment of fallopian tubes. FINDINGS: Lower abdominal skin scar consistent with prior section. Subcutaneous tissue and fascia were fibrotic and thick. The fascia was adherent to the underlying rectus muscles, which were adherent to each other in the midline. Omental parietal peritoneal adhesions encountered. The lower uterine segment was adherent to the anterior parietal peritoneum with thick adhesions to the bladder. in cephalic presentation. Clear amniotic fluid. Loose nuchal cord x1. Bilateral tubes and ovaries consistent with normal anatomy. DESCRIPTION OF PROCEDURE: The patient was taken to the operating room where anesthesia was found to be adequate. She was then prepped and draped in a normal sterile fashion. Appropriate time-out took place. Pfannenstiel skin incision was made with a scalpel and carried to underlying fascia with the Bovie. The fascia was incised in the midline and incision extended laterally with sharp dissection. The underlying rectus muscles were dissected sharply. The rectus muscles were fused to each other in the midline and elevated with Allis clamps and sharply superiorly with the scalpel. Entry to the peritoneal cavity revealed omental adhesions. The incision was extended superiorly, inferiorly, sharply without difficulty. The rectus muscles were adherent to the fascia superiorly, and they were transected sharply medially. The lower uterine segment was adherent to the parietal peritoneum, and bladder blade was placed. The adhesions showed that the lower uterine segment was inaccessible below the thick adhesions. Transverse incision was made with a scalpel approximately 5 cm above the lower uterine segment adhesions. Incision was extended laterally with blunt dissection. Amniotomy took place. The was delivered through the surgical incision with mild fundal pressure and the loose nuchal cord x1 removed. Shoulders and rest of the body delivered without difficulty. Umbilical cord was clamped and cut. Infant was handed off to the awaiting NICU staff. Segment for gases and blood were obtained. The placenta was delivered manually and intact. The uterus was exteriorized through a surgical incision, and the endometrial cavity was cleared of all clot and debris. The incision was reapproximated with 1-0 Polysorb running, locked sutures. Excellent reapproximation achieved. Raw edge of the uterine serosa with mild oozing, 2nd layer of the same imbricating suture took place, and an additional 2 [id number] stitches in the midline were required to achieve excellent hemostasis. Attention was then re-directed to the right fallopian tube, which it was elevated after being followed to its fimbriated end. Modified Bessy procedure with plain gut took place. Segment of the tube was removed and sent to Pathology. Excellent hemostasis was noted from the surgical stump. Attention was then re-directed to the contralateral fallopian tube, which underwent the exact procedure without difficulty. Segment was sent to Pathology. Mild oozing from the mesosalpinx immediately inferior to the partial salpingectomy site on the right was controlled with Bovie cautery. The uterus was internalized to the pelvic cavity, and gutters were cleared of all clot and debris. The lower uterine segment incision was dried, and the tubal stumps were hemostatic as well. The rectus muscles were manually reapproximated, and excellent hemostasis was noted on the surgical field. The fascia was thick and reapproximated with 0 Polysorb running, nonlocked suture took place. Excellent structural reapproximation achieved and confirmed by digital palpation by the surgeon. Subcutaneous tissues were copiously irrigated, and skin incision was reapproximated with surgical breann. Patient tolerated the procedure well and is going to the recovery room in stable condition. Instrument count was reported as correct x2 by the staff. NANCY PASTRANA MD [id number] MTDD
[2019-10-06] MEDS: SIMETHICONE 80 MG TAB.CHEW (FP) PO PRN (20:31)
[2019-10-06] MEDS: ACETAMINOPHEN 325 MG TABLET (FP) PO PRN (20:31)
[2019-10-06] MEDS: oxyCODONE HCL 5 MG TABLET PO PRN (20:32)
[2019-10-07] MEDS ORDERED: BISACODYL 10 MG SUPP.RECT RC PRN (02:23)
[2019-10-07] MEDS: oxyCODONE HCL 5 MG TABLET PO PRN ×4 (05:31→21:05)
[2019-10-07] MEDS: SIMETHICONE 80 MG TAB.CHEW (FP) PO PRN ×3 (05:31→21:05)
[2019-10-07] MEDS: ACETAMINOPHEN 325 MG TABLET (FP) PO PRN (05:31)
--- NOTE | 2019-10-07 07:51 | PN ---
Post Progress Note - Subjective Subjective: pt sleepy. c/o pain scale 7/10 voiding without difficulty not passing flatus yet Post Day: 1 Type of Delivery: Repeat C/S (& BTL) Vital Signs: Vital Signs Temperature 98.4 F 10/06/19 22:25 Pulse Rate 71 10/06/19 22:25 Respiratory Rate 20 10/07/19 00:00 Blood Pressure 105/62 10/06/19 22:25 O2 Sat by Pulse Oximetry (%) 97 10/06/19 05:00 Breast Exam: Yes: Soft. No: Engorged, Other (BF ) Uterus: Yes: Fundus Firm, Fundus below umbilicus (tender) Incision: Yes: Dressing dry and intact. No: Redness, Oozing Abdomen/GI: Yes: Abdomen soft (bs active), Tender, Tolerating PO (fluids). No: Abdominal Distention, Passing flatus Lochia: Yes: Rubra Lochia, amount: Moderate Extremities: Yes: Calves non-tender Perineum: Yes: Intact Activity: Ambulating - Labs Labs: CBC WBC 20.1 K/mm3 (4.0-10.0) H 10/06/19 07:15 RBC 3.60 M/mm3 (3.60-5.2) 10/06/19 07:15 Hgb 10.3 GM/dL (10.7-15.3) L 10/06/19 07:15 Hct 30.9 % (32.4-45.2) L 10/06/19 07:15 MCV 85.7 fl (80-96) 10/06/19 07:15 MCH 28.6 pg (25.7-33.7) 10/06/19 07:15 MCHC 33.4 g/dl (32.0-36.0) 10/06/19 07:15 RDW 14.1 % (11.6-15.6) 10/06/19 07:15 Plt Count 219 K/MM3 (134-434) 10/06/19 07:15 MPV 9.9 fl (7.5-11.1) 10/06/19 07:15 Absolute Neuts (auto) 17.1 K/mm3 (1.5-8.0) H 10/06/19 07:15 Neutrophils % 85.1 % (42.8-82.8) H 10/06/19 07:15 Neutrophils % (Manual) 78.4 % (42.8-82.8) 10/06/19 07:15 Band Neutrophils % 0.0 % 10/06/19 07:15 Lymphocytes % 7.7 % (8-40) L D 10/06/19 07:15 Lymphocytes % (Manual) 7.2 % (8-40) L 10/06/19 07:15 Monocytes % 6.9 % (3.8-10.2) 10/06/19 07:15 Monocytes % (Manual) 13 % (3.8-10.2) H 10/06/19 07:15 Eosinophils % 0.0 % (0-4.5) D 10/06/19 07:15 Eosinophils % (Manual) 0.0 % (0-4.5) 10/06/19 07:15 Basophils % 0.3 % (0-2.0) 10/06/19 07:15 Basophils % (Manual) 0.0 % (0-2.0) 10/06/19 07:15 Myelocytes % (Man) 0 % (0-2) 10/06/19 07:15 Promyelocytes % (Man) 0 % (0-2) 10/06/19 07:15 Blast Cells % (Manual) 0 % (0-0) 10/06/19 07:15 Nucleated RBC % 0 % (0-0) 10/06/19 07:15 Metamyelocytes 0 % (0-2) 10/06/19 07:15 Hypochromia 1+ 10/06/19 07:15 Platelet Estimate Normal 10/06/19 07:15 Polychromasia 0 10/06/19 07:15 Poikilocytosis 0 10/06/19 07:15 Anisocytosis 1+ 10/06/19 07:15 Microcytosis 1+ 10/06/19 07:15 Macrocytosis 0 10/06/19 07:15 Other Findings, Remarks: rs cta output : 1300+ 600 ml iV intake 650 + 500 ml + po intake not charted Problem List - Problems (1) Status post section routine follow-up Code(s): Z39.2 - ENCOUNTER FOR ROUTINE FOLLOW-UP; Z98.891 - HISTORY OF UTERINE SCAR FROM PREVIOUS SURGERY Assessment/Plan stable po cbc pending . ct po care
--- NOTE | 2019-10-07 09:08 | PN ---
Progress Note (short form) - Note Progress Note: POD1 s/p csection with spinal and duramorph. Pt's pain is better controlled now , no back pain, no RUSSELL, able to ambulate. No anesthetic issues/complications
[2019-10-07] MEDS: IBUPROFEN 600 MG TABLET (FP) PO PRN ×3 (09:10→21:06)
[2019-10-07] MEDS: OXYTOCIN 20 UNITS in 0.9% NS 20 UNIT/1,000 ML INFUS.BAG IV SCH (11:12)
[2019-10-08] MEDS: SIMETHICONE 80 MG TAB.CHEW (FP) PO PRN ×2 (05:43→22:46)
[2019-10-08] MEDS: oxyCODONE HCL 5 MG TABLET PO PRN ×4 (05:43→22:46)
[2019-10-08] MEDS: IBUPROFEN 600 MG TABLET (FP) PO PRN ×2 (05:46→22:47)
--- NOTE | 2019-10-08 08:28 | PN ---
Post Progress Note - Subjective Subjective: Pain controlled. No fevers/chills. Lochia decreasing. Ambulating w/o difficulty Post Day: 2 Type of Delivery: Repeat C/S Vital Signs: Vital Signs Temperature 98 F 10/07/19 22:00 Pulse Rate 87 10/07/19 22:00 Respiratory Rate 18 10/07/19 22:00 Blood Pressure 113/67 10/07/19 22:00 O2 Sat by Pulse Oximetry (%) 97 10/06/19 05:00 Uterus: Yes: Fundus below umbilicus Incision: Yes: Suyapa intact Abdomen/GI: Yes: Abdomen soft, Passing flatus, Tolerating PO Lochia: Yes: Rubra Lochia, amount: Small Extremities: Yes: Calves non-tender Activity: Ambulating - Labs Labs: CBC WBC 20.1 K/mm3 (4.0-10.0) H 10/06/19 07:15 RBC 3.60 M/mm3 (3.60-5.2) 10/06/19 07:15 Hgb 10.3 GM/dL (10.7-15.3) L 10/06/19 07:15 Hct 30.9 % (32.4-45.2) L 10/06/19 07:15 MCV 85.7 fl (80-96) 10/06/19 07:15 MCH 28.6 pg (25.7-33.7) 10/06/19 07:15 MCHC 33.4 g/dl (32.0-36.0) 10/06/19 07:15 RDW 14.1 % (11.6-15.6) 10/06/19 07:15 Plt Count 219 K/MM3 (134-434) 10/06/19 07:15 MPV 9.9 fl (7.5-11.1) 10/06/19 07:15 Absolute Neuts (auto) 17.1 K/mm3 (1.5-8.0) H 10/06/19 07:15 Neutrophils % 85.1 % (42.8-82.8) H 10/06/19 07:15 Neutrophils % (Manual) 78.4 % (42.8-82.8) 10/06/19 07:15 Band Neutrophils % 0.0 % 10/06/19 07:15 Lymphocytes % 7.7 % (8-40) L D 10/06/19 07:15 Lymphocytes % (Manual) 7.2 % (8-40) L 10/06/19 07:15 Monocytes % 6.9 % (3.8-10.2) 10/06/19 07:15 Monocytes % (Manual) 13 % (3.8-10.2) H 10/06/19 07:15 Eosinophils % 0.0 % (0-4.5) D 10/06/19 07:15 Eosinophils % (Manual) 0.0 % (0-4.5) 10/06/19 07:15 Basophils % 0.3 % (0-2.0) 10/06/19 07:15 Basophils % (Manual) 0.0 % (0-2.0) 10/06/19 07:15 Myelocytes % (Man) 0 % (0-2) 10/06/19 07:15 Promyelocytes % (Man) 0 % (0-2) 10/06/19 07:15 Blast Cells % (Manual) 0 % (0-0) 10/06/19 07:15 Nucleated RBC % 0 % (0-0) 10/06/19 07:15 Metamyelocytes 0 % (0-2) 10/06/19 07:15 Hypochromia 1+ 10/06/19 07:15 Platelet Estimate Normal 10/06/19 07:15 Polychromasia 0 10/06/19 07:15 Poikilocytosis 0 10/06/19 07:15 Anisocytosis 1+ 10/06/19 07:15 Microcytosis 1+ 10/06/19 07:15 Macrocytosis 0 10/06/19 07:15 Problem List - Problems (1) Status post section routine follow-up Code(s): Z39.2 - ENCOUNTER FOR ROUTINE FOLLOW-UP; Z98.891 - HISTORY OF UTERINE SCAR FROM PREVIOUS SURGERY Assessment/Plan 39yo s/p RLTCS, POD#2 Routine PP care PO pain control Labs reviewed D/C to home by POD#4 Natalia Veloz MD
[2019-10-08] MEDS: ACETAMINOPHEN 325 MG TABLET (FP) PO PRN ×2 (11:47→17:28)
[2019-10-08 22:29] VITALS: BP 116/72; PULSE 85; TEMP 98
--- NOTE | 2019-10-09 08:16 | PN ---
Progress Note (short form) - Note Progress Note: pod 3 s/p repeat c/s , ambulating , no pain , no dizziness, . CBC, BMP 10/06/19 07:15 10/05/19 23:58 Last Vital Signs Temp Pulse Resp BP Pulse Ox 98 F 85 18 116/72 97 10/08/19 22:00 10/08/19 22:00 10/08/19 22:00 10/08/19 22:00 10/06/19 05:00 abdomen soft, no distension no cva incision dry, clean no calf tenderness lochia mild plan ambulate cbc , revaluate pain management
[2019-10-09 09:08] LABS: BASO % 0.6 % (0-2.0); EOS % 1.5 % (0-4.5); HEMOGLOBIN 10.2 GM/dL (10.7-15.3); LYMPH % 18.8 % (8-40); MCH 28.1 pg (25.7-33.7); MCHC 32.9 g/dl (32.0-36.0); MEAN CELL VOLUME 85.3 fl (80-96); MEAN PLT VOLUME 9.3 fl (7.5-11.1); MONO % 6.6 % (3.8-10.2); NEUT % 72.5 % (42.8-82.8); PLATELET COUNT 257 K/MM3 (134-434); RBC 3.63 M/mm3 (3.60-5.2); RDW 14.3 % (11.6-15.6); WHITE BLOOD COUNT 10.5 K/mm3 (4.0-10.0)
--- NOTE | 2019-10-13 16:46 | PATH ---
Surgical Pathology Report Patient Name: BELLA CORCORAN [facility]. Rec. #: [id number] /Age/Gender: 1980 (Age: 39) / F Account: [id number] Location: [facility] OBS/ASSEMBLER DC FIELD YOKE Taken: 10/06/2019 Received: 10/06/2019 Reported: 10/13/2019 Physicians: Primo Nugent MD Specimen(s) Received A: PLACENTA B: RIGHT FALLOPIAN TUBE C: LEFT FALLOPIAN TUBE Clinical History , SPAB x1, second AB x3, previous IUP 38 weeks early term, severe contractions, nonreassuring status Final Diagnosis A. PLACENTA, SECTION: 457 G THIRD TRIMESTER PLACENTA WITH TRIVASCULAR UMBILICAL CORD AND UNREMARKABLE PLACENTAL MEMBRANES. B. FALLOPIAN TUBE, RIGHT, PARTIAL EXCISION: FULL LUMINAL PORTION OF FALLOPIAN TUBE WITH PARATUBAL AND WALTHARD NEST CYSTS. C. FALLOPIAN TUBE, LEFT, PARTIAL EXCISION: FULL LUMINAL PORTION OF FALLOPIAN TUBE WITH PARATUBAL CYST. Electronically Signed Magalys Villalpando M.D. Gross Description A. The specimen is received fresh labeled placenta and is a 457 gram, 18.0 x 15.5 x 2.8 cm. placenta with attached membranes and umbilical cord. The attached membranes are mccarthy, translucent with focal opacities and insert marginally. The umbilical cord measures 8.5 cm. in length and averages 1.1 cm. in diameter. The cord inserts eccentrically, 4 cm. to the nearest margin. No true knots or strictures are identified. Cut surface of the umbilical cord reveals 3 vessels. The surface is abernathy blue with moderate fibrin deposition and appropriate caliber vessels. The maternal surface is red-brown with focal defects. Sectioning reveals red-brown, spongy parenchyma. No lesions are identified. Firestopper Technician sections are submitted in three cassettes as follows: 1- membrane rolls and umbilical cord; 2-3- full thickness sections of placenta. B. Received in formalin labeled "right fallopian tube," is a 1.3 cm in length portion of fallopian tube. No fimbria are present. The outer surface is mccarthy-bush and smooth. Sectioning reveals an unremarkable lumen. Firestopper Technician sections are submitted in one cassette. C. Received in formalin labeled "left fallopian tube," is a 1.2 cm in length portion of fallopian tube. No fimbria are present. The outer surface is mccarthy-bush and smooth. Sectioning reveals an unremarkable lumen. Firestopper Technician sections are submitted in one cassette. 10/12/2019 [facility]10/12/2019
== END 2019-10-09 12:15 | disposition home or self-care (01) | DRG 540 ==
LOC: JDEL 20:05 → JLDR 23:30 → J3W 10-06 05:17
PROVIDERS: ADMIT Student in an Organized Health Care Education/Training Program; ATTEND Student in an Organized Health Care Education/Training Program
PROC: 10D00Z1 Extraction of Products of Conception, Low, Open Approach (ICD-10-PCS; principal; 2019-10-06)
PROC: 0U570ZZ Destruction of Bilateral Fallopian Tubes, Open Approach (ICD-10-PCS; 2019-10-06)
DX: O76 Abnormality in fetal heart rate and rhythm complicating labor and delivery (principal); O34.219 Maternal care for unspecified type scar from previous cesarean delivery; O62.8 Other abnormalities of forces of labor; Z3A.37 37 weeks gestation of pregnancy; Z37.0 Single live birth; Z30.2 Encounter for sterilization
CPT/HCPCS: 36415; 36600; 80048; 80307; 82803; 85025; 85610; 85730; 86593; 86762; 86850; 86900; 86901; 87340; 87389; 88302-TC; 88307-TC

== ENCOUNTER 2020-05-08 07:59 | Emergency (ER) | payer OTHER ==
[2020-05-08 08:05] VITALS: BP 122/65; PULSE 99; TEMP 98.3; BMI 26.2
[2020-05-08] MEDS ORDERED: CEPHALEXIN 250 MG/5 ML ORAL SUSPENSION PO ONE (08:46)
[2020-05-08] MEDS ORDERED: DIPHTH,PERTUSS(ACELL),TET 0.5 ML DISP.SYRIN IM ONE ×2 (08:47→09:00)
[2020-05-08] MEDS ORDERED: IBUPROFEN 600 MG TABLET (FP) PO ONE ×2 (08:53→09:00)
[2020-05-08] MEDS ORDERED: CEPHALEXIN MONOHYDRATE 500 MG CAPSULE (UD) ONE (08:59)
--- NOTE | 2020-05-08 09:00 | PDOC ---
Attending Attestation - Resident Resident Name: FanAlmas galanison - ED Attending Attestation I have performed the following: I have examined & evaluated the patient, The case was reviewed & discussed with the resident, I agree w/resident's findings & plan, Exceptions are as noted - HPI HPI: 05/08/20 08:53 [id number] without PMH who p/w puncture wound to the right buttocks which she notes has become red and painful for the past 2 days. She denies any f/c/n/v/d/c, streaking redness, drainage of pus, or other concerning symptoms. She believes this started out as an insect bite, but she is not sure. She states her tetanus vaccination is not up to date and would like one today. No known antibiotic allergies. - Physicial Exam PE: 05/08/20 09:05 GENERAL: sleeping comfortably in vertical side room, nontoxic-appearing, A/Ox4, no distress, answers questions appropriately HEENT: PERRLA, EOMI, moist mucous membranes NECK/BACK: no midline ttp, no spinal stepoff or deformity, no hematoma, full ROM, neck supple CARDIOVASCULAR: regular rate/rhythm, no MGR, strong peripheral pulses, capillary refill <2 seconds, extremities wwp, no edema LUNGS/RESPIRATORY: no respiratory distress, CTAB GI/ABDOMEN: symmetric fyao-db-tzom, normoactive BS, soft, no ttp, no midline pulsatile masses : no CVA tenderness MSK/EXTREMITIES: no muscle atrophy, no acute deformity SKIN: right mid-buttock with 6x6cm area of erythema, warmth, and induration without fluctuance with a tiny central lesion which appears as an insect bite, no scab, no active drainage, no streaking erythema, skin is otherwise warm and dry, no pallor, no jaundice, no rash, no pathologic-appearing bruising, no skin breakdown, no cuts, no lesions LYMPH: right inguinal lymphadenopathy without skin changes or significant tenderness NEUROLOGICAL: GCS 15, CN II-XII grossly intact, 5/5 strength proximally and distally, no facial droop - Medical Decision Making 05/08/20 09:08 39YOF p/w right buttocks redness and pain for the past 2 days after sustaining what she believes was an insect bite. Initial Vital Signs Temp Pulse Resp BP Pulse Ox 98.3 F 99 H 18 122/65 99 07/19/20 08:01 05/08/20 08:01 05/08/20 08:01 05/08/20 08:01 05/08/20 08:01 DDX IBNLT: most likely simple cellulitis without abscess. Much less likely abscess given that the POCUS showed only cobblestoning and no fluid collection, unlikely any necrotizing soft tissue infection, or other more serious infection as patient has no prior history of this. W/U ordered: None TX ordered: Keflex, Motin, Tdap On last reassessment, vitals are wnl, pain is reasonably controlled, and exam is benign. Workup is not concerning for emergency-level pathology at this time. This Pt is appropriate for discharge with close outpatient follow up. They are comfortable with this plan and will follow up with PCP in 1-3 days. She will pickling solution maker the Keflex E-Rx and take as prescribed. Specific return precautions are discussed and they will come back to the ER if necessary. Discharge - Discharge Information Problems reviewed: Yes Clinical Impression/Diagnosis: Cellulitis Qualifiers: Site of cellulitis: buttock Qualified Code(s): L03.317 - Cellulitis of buttock Condition: Stable Disposition: HOME - Admission No - Additional Discharge Information Prescriptions: Cephalexin Monohydrate [Keflex -] 500 mg PO Q6H 7 Days #30 capsule - Follow up/Referral - Patient Discharge Instructions Patient Printed Discharge Instructions: Cellulitis Additional Instructions: You came into the emergency department because you had pain along your right inguinal area and buttock pain. This is most likely a cellulitis (skin infection) Here at the ED we evaluated the skin infection on exam and ultrasound and it was not punctate enough for induration and drainage so we gave you one 500 mg dose of cephalexin at hospital. We also gave ibuprofen for pain. For your buttock cellulitis we prescribed you cephalexin (Keflex) to your pharmacy please take 500mg four times a day for the next 7 days. For the pain please take either tylenol 325-1000mg every 6 hours no more than 4000 mg in 24 hours or motrin 400 mg every 4-6 hours whenever you need it. Your workup is not complete without seeing your PCP within one week. Please return to the ED if you have: - worsening pain - infection expands to anal area or perineum - SOB, chest pain - Any problems making bowel movements or urination - or any other concerning symptoms If you think you have an emergency call for medical help right away. - Post Discharge Activity
--- NOTE | 2020-05-08 09:01 | PDOC ---
History of Present Illness - General Chief Complaint: Redness To Affected Area Stated Complaint: INSECT BITE Time Seen by Provider: 05/08/20 08:10 - History of Present Illness Initial Comments: 39 yo female with no pmh presents to the ED with left sided inguinal pain and buttock pain for the past two days. Pt explains two days ago when waking up she felt pain in her inguinal area that has gradually expanded to her buttock area over the last two days. Pt explains it is sharp constant worsening pain. She explains the area is swollen, hot, and erythematous. Pt explains she has had a history of abscess three years ago but no other prior history. Pt has associated sxs of subjective fevers and chills. Pt denies any pain down leg, numbness in extremities, change in bowel movements or urination, no history of DM or IV drug abuse. PMH: Denies Meds: Denies PSH: (september 2019) Social: 11 pack year smoking history; denies drugs and alcohol allergies: denies Past History - Medical History Allergies/Adverse Reactions: Allergies Allergy/AdvReac Type Severity Reaction Status Date / Time No Known Allergies Allergy Verified 05/08/20 08:05 Home Medications: Ambulatory Orders Acetaminophen [Tylenol] 650 mg PO Q6H PRN #30 capsule MDD 5 10/07/19 Ibuprofen 600 mg PO Q6H PRN #30 tablet 10/07/19 oxyCODONE HCL [Oxycodone HCl] 5 mg PO Q6H PRN 3 Days #12 tablet MDD 5 10/07/19 Cephalexin Monohydrate [Keflex -] 500 mg PO Q6H 7 Days #30 capsule 05/08/20 Anemia: No Asthma: No Cancer: No Cardiac Disorders: No CVA: No COPD: No CHF: No DVT: No Dementia: No Diabetes: Yes GI Disorders: No Disorders: No HTN: No Hypercholesterolemia: No Kidney Stones: No Liver Disease: No Psychiatric Problems: Yes (BIPOLAR, ANXIETY, DEPRESSION) Seizures: No Thyroid Disease: No - Surgical History Abdominal Surgery: Yes (c/s) Appendectomy: No Cardiac Surgery: No Cholecystectomy: No Lung Surgery: No Neurologic Surgery: No Orthopedic Surgery: No - Reproductive History (#): 5 Para: 1 PID: No Therapeutic (s) & number: Yes (2) Spontaneous : 1 - Immunization History Td Vaccination: Yes Immunization Up to Date: Yes - Psycho-Social/Smoking History Smoking Status: Yes Smoking History: Current every day smoker Years of Tobacco Use: 15 Have you smoked in the past 12 months: Yes Number of Cigarettes Smoked Daily: 5 Cigars Per Day: 0 Information on smoking cessation initiated: No 'Breaking Loose' booklet given: 12/19/16 - Substance Abuse Hx (Audit-C & DAST Scrn) How often the patient has a drink containing alcohol: Never Score: In Men: 4 or > Positive; In Women: 3 or > Positive: 0 Screen Result (Pos requires Nsg. Audit-10AR): Negative Review of Systems - Review of Systems Comments:: 05/08/20 09:13 GENERAL/CONSTITUTIONAL: Subjective fevers and chills. No weakness. HEAD, EYES, EARS, NOSE AND THROAT: No change in vision. No ear pain or discharge. No sore throat. CARDIOVASCULAR: No chest pain or shortness of breath RESPIRATORY: No cough, wheezing, or hemoptysis. GASTROINTESTINAL: No nausea, vomiting, diarrhea or constipation. GENITOURINARY: No dysuria, frequency, or change in urination. MUSCULOSKELETAL: No joint or muscle swelling or pain. No neck or back pain. SKIN: Swellling and erythema of left buttock NEUROLOGIC: No headache, vertigo, loss of consciousness, or change in strength/sensation. ENDOCRINE: No increased thirst. No abnormal weight change HEMATOLOGIC/LYMPHATIC: No anemia, easy bleeding, or history of blood clots. Swelling of left inguinal lymph node ALLERGIC/IMMUNOLOGIC: No hives or skin allergy. *Physical Exam - Vital Signs Last Vital Signs Temp Pulse Resp BP Pulse Ox 98.3 F 99 H 18 122/65 99 05/08/20 08:01 05/08/20 08:01 05/08/20 08:01 05/08/20 08:01 05/08/20 08:01 - Physical Exam 05/08/20 09:16 GENERAL: Awake, alert, and fully oriented, in moderate distress HEAD: No signs of trauma, normocephalic, atraumatic EYES: PERRLA, EOMI, sclera anicteric, conjunctiva clear ENT: Auricles normal inspection, hearing grossly normal, nares patent, oropharynx clear without exudates. Moist mucosa NECK: Normal ROM, supple, no lymphadenopathy, JVD, or masses LUNGS: No distress, speaks full sentences, clear to auscultation bilaterally HEART: Regular rate and rhythm, normal S1 and S2, no murmurs, rubs or gallops, peripheral pulses normal and equal bilaterally. ABDOMEN: Soft, nontender, normoactive bowel sounds. No guarding, no rebound. No masses EXTREMITIES : Normal inspection, Normal range of motion, no edema. No clubbing or cyanosis. NEUROLOGICAL: Cranial nerves II through XII grossly intact. Normal speech, normal gait, no focal sensorimotor deficits SKIN: 6cm erythematous area on left buttock with mild induration. Palpable left inguinal lymph node. Medical Decision Making - Medical Decision Making 05/08/20 09:18 39 yo female with no pmh presents to the ED with left sided inguinal area and left buttock for the past two days. Exam showed 6 cm erythematous area of left buttock. Pt most likely has cellulitis. Tx with one dose of 500mg cephalexin here and dc with 500 mg cephalixin qid for 7 days and take tylenol or motrin for pain. Strict return precautions given for abscess, spread, and more. Discharge - Discharge Information Problems reviewed: Yes Clinical Impression/Diagnosis: Cellulitis Qualifiers: Site of cellulitis: buttock Qualified Code(s): L03.317 - Cellulitis of buttock Condition: Stable Disposition: HOME - Admission No - Additional Discharge Information Prescriptions: Cephalexin Monohydrate [Keflex -] 500 mg PO Q6H 7 Days #30 capsule - Follow up/Referral - Patient Discharge Instructions Patient Printed Discharge Instructions: Cellulitis Additional Instructions: You came into the emergency department because you had pain along your right inguinal area and buttock pain. This is most likely a cellulitis (skin infection) Here at the ED we evaluated the skin infection on exam and ultrasound and it was not punctate enough for induration and drainage so we gave you one 500 mg dose of cephalexin at hospital. We also gave ibuprofen for pain. For your buttock cellulitis we prescribed you cephalexin (Keflex) to your pharmacy please take 500mg four times a day for the next 7 days. For the pain please take either tylenol 325-1000mg every 6 hours no more than 4000 mg in 24 hours or motrin 400 mg every 4-6 hours whenever you need it. Your workup is not complete without seeing your PCP within one week. Please return to the ED if you have: - worsening pain - infection expands to anal area or perineum - SOB, chest pain - Any problems making bowel movements or urination - or any other concerning symptoms If you think you have an emergency call for medical help right away. - Post Discharge Activity
== END 2020-05-08 09:00 | disposition home or self-care (01) ==
LOC: JER 07:59
PROC: 3E0234Z Introduction of Serum, Toxoid and Vaccine into Muscle, Percutaneous Approach (ICD-10-PCS; principal; 2020-05-08)
DX: L03.317 Cellulitis of buttock (principal)
CPT/HCPCS: 90715; 99283-25

== ENCOUNTER 2021-10-19 12:02 | Emergency (ER) | payer OTHER ==
[2021-10-19 12:16] VITALS: BP 149/78; PULSE 75; TEMP 97.8; BMI 28.3
[2021-10-19] MEDS ORDERED: METHOCARBAMOL 500 MG TABLET PO ONE (14:11)
[2021-10-19] MEDS ORDERED: KETOROLAC TROMETHAMINE 30 MG/1 ML VIAL IM ONE (14:11)
[2021-10-19] MEDS ORDERED: METHOCARBAMOL 500 MG TABLET ONE (14:36)
[2021-10-19] MEDS ORDERED: KETOROLAC TROMETHAMINE 30 MG/1 ML VIAL ONE (14:36)
== END 2021-10-19 16:32 | disposition home or self-care (01) ==
LOC: JER 12:02
PROC: 3E023GC Introduction of Other Therapeutic Substance into Muscle, Percutaneous Approach (ICD-10-PCS; principal; 2021-10-19)
DX: M54.50 Low back pain, unspecified (principal)
CPT/HCPCS: 72070-TC-FY; 72100-TC-FY; 99284-25; C9803; U0003; U0005

== ENCOUNTER 2021-11-05 16:00 | Emergency (ER) | payer OTHER ==
[2021-11-05 16:08] VITALS: BP 104/62; PULSE 95; TEMP 97; BMI 26.2
[2021-11-05] MEDS ORDERED: IBUPROFEN 400 MG TABLET (FP) PO ONE ×2 (17:03→17:05)
[2021-11-05] MEDS ORDERED: CLINDAMYCIN HCL 150 MG CAPSULE (FP) PO ONE (18:22)
[2021-11-05] MEDS ORDERED: CLINDAMYCIN HCL 150 MG CAPSULE (FP) ONE (18:30)
== END 2021-11-05 18:43 | disposition home or self-care (01) ==
LOC: JER 16:00 → JERFT 16:00
PROC: 0U9MXZZ Drainage of Vulva, External Approach (ICD-10-PCS; principal; 2021-11-05)
DX: N76.4 Abscess of vulva (principal)
CPT/HCPCS: 56405; 99283-25

== ENCOUNTER 2022-07-05 15:11 | Emergency (ER) | payer OTHER ==
[2022-07-05 15:27] VITALS: BP 101/52; PULSE 88; RESP 18; TEMP 98.8; BMI 31.7
[2022-07-05 18:07] LABS: EPI CELLS >36 /uL (0-25.1); HYALINE CASTS 2 /uL (0-3.1); PH,URINE 6.5 (5.0-8.0); URINE APPEARANCE CLOUDY; URINE BACTERIA 1614 /uL (0-1359); URINE BILIRUBIN NEGATIVE (NEGATIVE); URINE COLOR YELLOW; URINE GLUCOSE (UA) NEGATIVE (NEGATIVE); URINE KETONE NEGATIVE (NEGATIVE); URINE LEUK ESTERASE TRACE (NEGATIVE); URINE NITRITE NEGATIVE (NEGATIVE); URINE PROTEIN NEGATIVE (NEGATIVE); URINE RBC 46 /uL (0-23.9); URINE WBC 30 /uL (0-25.8)
== END 2022-07-05 18:58 | disposition home or self-care (01) ==
LOC: JERFT 15:11
DX: N39.0 Urinary tract infection, site not specified (principal); R31.9 Hematuria, unspecified
CPT/HCPCS: 36415; 81003; 84703; 87086; 87186; 87491; 87591; 99283-25

== ENCOUNTER 2022-09-15 11:34 | Emergency (ER) | payer OTHER ==
[2022-09-15 11:50] VITALS: BP 127/73; PULSE 94; RESP 16; TEMP 98; BMI 30.2
[2022-09-15] MEDS ORDERED: KETOROLAC TROMETHAMINE 30 MG/1 ML VIAL IM ONE (13:08)
[2022-09-15] MEDS ORDERED: KETOROLAC TROMETHAMINE 30 MG/1 ML VIAL ONE (13:29)
== END 2022-09-15 13:53 | disposition home or self-care (01) ==
LOC: JERFT 11:34
PROC: 3E0233Z Introduction of Anti-inflammatory into Muscle, Percutaneous Approach (ICD-10-PCS; principal; 2022-09-15)
DX: S86.911A Strain of unspecified muscle(s) and tendon(s) at lower leg level, right leg, initial encounter (principal); W01.0XXA Fall on same level from slipping, tripping and stumbling without subsequent striking against object, initial encounter; X50.0XXA Overexertion from strenuous movement or load, initial encounter
CPT/HCPCS: 73564-TC-RT-FY; 99283-25

== ENCOUNTER 2022-11-28 16:23 | Emergency (ER) | payer OTHER ==
[2022-11-28 16:34] VITALS: BP 123/54; PULSE 89; RESP 20; TEMP 98.2; BMI 30.2
[2022-11-28] MEDS ORDERED: ACETAMINOPHEN 500 MG TABLET (FP) PO ONE (16:54)
[2022-11-28] MEDS ORDERED: ACETAMINOPHEN 325 MG TABLET (FP) ONE (16:56)
== END 2022-11-28 17:51 | disposition home or self-care (01) ==
LOC: JER 16:23
DX: J00 Acute nasopharyngitis [common cold] (principal)
CPT/HCPCS: 0241U-QW; 99283-25

== ENCOUNTER 2022-12-30 20:43 | Emergency (ER) | payer OTHER ==
[2022-12-30 20:48] VITALS: BP 106/68; PULSE 80; RESP 17; TEMP 98.2; BMI 28.3
[2022-12-30] MEDS ORDERED: ERYTHROMYCIN 0.5% OPHTHALMIC OINTMENT 3.5 GM TUBE OU STA (22:56)
[2022-12-30] MEDS ORDERED: ERYTHROMYCIN 0.5% OPHTHALMIC OINTMENT 3.5 GM TUBE ONE (22:59)
== END 2022-12-30 23:07 | disposition home or self-care (01) ==
LOC: JERFT 20:43 → JER 20:43 → JERFT 23:07
DX: H00.015 Hordeolum externum left lower eyelid (principal); H10.33 Unspecified acute conjunctivitis, bilateral
CPT/HCPCS: 99283-25

== ENCOUNTER 2023-04-13 12:13 | Emergency (ER) | payer OTHER ==
[2023-04-13 12:33] VITALS: RESP 16; TEMP 98.3; BMI 30.2
[2023-04-13] MEDS ORDERED: METOCLOPRAMIDE HCL INJECTION 10 MG/2 ML VIAL IVPUSH ONE (12:50)
[2023-04-13] MEDS ORDERED: METOCLOPRAMIDE HCL INJECTION 10 MG/2 ML VIAL ONE (12:55)
[2023-04-13 13:32] LABS: BASO % 0.3 % (0-2.0); EOS % 0.7 % (0-4.5); HEMATOCRIT 41.7 % (32.4-45.2); HEMOGLOBIN 13.6 GM/dL (10.7-15.3); LYMPH % 25.2 % (8-40); MCH 27.8 pg (25.7-33.7); MCHC 32.8 g/dl (32.0-36.0); MEAN PLT VOLUME 9.9 fl (7.5-11.1); MONO % 9.6 % (3.8-10.2); NEUT % 64.2 % (42.8-82.8); PLATELET COUNT 273 10^3/uL (134-434); RDW 13.5 % (11.6-15.6); WHITE BLOOD COUNT 9.7 K/mm3 (4.0-10.0)
[2023-04-13 13:36] LABS: INR 1.14 (0.83-1.09); PROTHROMBIN TIME (PATIENT) 13.2 SEC (9.7-13.0)
[2023-04-13 13:38] LABS: ACTIVATED PTT 31.3 SECONDS (25.2-36.5)
[2023-04-13 13:44] LABS: POTASSIUM 3.8 mmol/L (3.5-5.1)
[2023-04-13 13:46] LABS: BLOOD UREA NITROGEN 12.5 mg/dL (7-18); CALCIUM 9.7 mg/dL (8.5-10.1)
[2023-04-13 13:50] LABS: CREATININE 0.7 mg/dL (0.55-1.3)
[2023-04-13 13:51] LABS: BILIRUBIN,TOTAL 0.5 mg/dL (0.2-1); TOT PROT 7.8 g/dl (6.4-8.2)
[2023-04-13 13:52] LABS: EPI CELLS 14 /uL (0-25.1); HYALINE CASTS 0 /uL (0-3.1); URINE APPEARANCE CLEAR; URINE BACTERIA 165 /uL (0-1359); URINE BILIRUBIN NEGATIVE (NEGATIVE); URINE COLOR YELLOW; URINE GLUCOSE (UA) NEGATIVE (NEGATIVE); URINE KETONE 1+ (NEGATIVE); URINE LEUK ESTERASE NEGATIVE (NEGATIVE); URINE NITRITE NEGATIVE (NEGATIVE); URINE PROTEIN NEGATIVE (NEGATIVE); URINE UROBILINOGEN 0.2 mg/dL (0.2-1.0); URINE WBC 5 /uL (0-25.8)
[2023-04-13 13:56] LABS: URINE RBC 20.4 /uL (0-23.9)
[2023-04-13] MEDS ORDERED: ACETAMINOPHEN 1000 MG/100 ML BAG IVPB ONE (14:12)
[2023-04-13] MEDS ORDERED: SODIUM CHLORIDE 1,000 ML IV STA (14:21)
[2023-04-13] MEDS ORDERED: ACETAMINOPHEN INJECTION 100 ML IVPB ONE (14:53)
[2023-04-13 16:10] VITALS: BP 117/57; PULSE 65
== END 2023-04-13 16:19 | disposition home or self-care (01) ==
LOC: JER 12:13
PROC: 3E033NZ Introduction of Analgesics, Hypnotics, Sedatives into Peripheral Vein, Percutaneous Approach (ICD-10-PCS; principal; 2023-04-13)
PROC: 3E033GC Introduction of Other Therapeutic Substance into Peripheral Vein, Percutaneous Approach (ICD-10-PCS; 2023-04-13)
PROC: 3E0337Z Introduction of Electrolytic and Water Balance Substance into Peripheral Vein, Percutaneous Approach (ICD-10-PCS; 2023-04-13)
DX: G43.909 Migraine, unspecified, not intractable, without status migrainosus (principal); R53.1 Weakness; R07.9 Chest pain, unspecified; R06.02 Shortness of breath; R63.0 Anorexia; R11.2 Nausea with vomiting, unspecified; R53.83 Other fatigue
CPT/HCPCS: 36415; 70450-TC; 71046-TC-FY; 80053; 81003; 84443; 84484; 84703; 85025; 85610; 85730; 87086; 93005; 93010; 99285-25